=== PATIENT | male | born 1935 | race Caucasian/White ===

== ENCOUNTER 2017-08-02 14:54 | Emergency (ER) | payer MEDICARE, BC ==
[~2017-08-02] VITALS: Ht 172.7 cm; Wt 97.0 kg
[~2017-08-02 14:54] MED LIST: ASPI81TA82 PO; ATOR40TA49 PO; BUDE.25I INH; CEFU1TAB43 PO; CLON-352 PO; DILT180C56 PO; FERR65TA PO; FURO40TA PO; GLUC10TA3 PO; HYDR100T2 PO; LORA-392 PO; MONT10 PO; OMPR20CCR PO; PERF20NE INH; PRED5TAB PO; SAXA2.5T PO; VITA500015 PO; Z.0.OXYGEN INH
[2017-08-02 14:59] VITALS: BP 182/85; PULSE 100; RESP 16; TEMP 98.5; O2SAT 98
[2017-08-02 15:10] VITALS: O2SAT 97
[2017-08-02] MEDS ORDERED: methylPREDNISolone SOD SUCC 125 MG/2 ML VIAL IV PUSH ONE (15:15)
[2017-08-02] MEDS ORDERED: SODIUM CHLORIDE 0.9% FLUSH 10 ML FLUSH IVF PRN (15:15)
[2017-08-02] MEDS ORDERED: GLIP10TA6 PO (15:23)
[2017-08-02] MEDS ORDERED: CLON2TAB PO (15:23)
[2017-08-02] MEDS ORDERED: HYDR-3801 PO (15:23)
[2017-08-02] MEDS ORDERED: SODI650T PO (15:23)
[2017-08-02] MEDS ORDERED: ALLE4TAB7 PO (15:23)
[2017-08-02] MEDS ORDERED: OMEGCAP PO (15:23)
[2017-08-02] MEDS ORDERED: CLON0.1T PO (15:23)
[2017-08-02] MEDS ORDERED: BENZ1CAP54 PO (15:23)
[2017-08-02] MEDS ORDERED: GLUC100013 PO (15:23)
[2017-08-02] MEDS ORDERED: MONT10TA4 PO (15:23)
[2017-08-02] MEDS ORDERED: DILT0.05 PO (15:23)
[2017-08-02] MEDS ORDERED: ONGL5TAB PO (15:23)
[2017-08-02] MEDS ORDERED: CLON.5 PO ×3 (15:23→15:29)
[2017-08-02] MEDS ORDERED: ATOR40TA16 PO (15:23)
[2017-08-02] MEDS ORDERED: PRED10 PO (15:23)
[2017-08-02] MEDS ORDERED: FURO40TA PO (15:23)
[2017-08-02] MEDS ORDERED: ASPI-516 CHEW (15:23)
[2017-08-02] MEDS ORDERED: LORA-392 PO (15:23)
[2017-08-02] MEDS ORDERED: FERR200T PO (15:23)
[2017-08-02] MEDS ORDERED: OMEP20TA93 PO (15:23)
[2017-08-02] MEDS ORDERED: BUDE.5I NEB (15:23)
--- NOTE | 2017-08-02 15:27 | RADRPT ---
EXAM DATE/TIME: 08/02/2017 15:13 [place] COMPARISON: CHEST SINGLE AP, January 24, 2015, 13:36. INDICATIONS : Shortness of breath. MEDICAL HISTORY : Emphysema. Diabetes mellitus type II. Chronic obstructive pulmonary disease. Asthma. SURGICAL HISTORY : None. ENCOUNTER: Initial ACUITY: 1 day PAIN SCORE: 0/10 LOCATION: Bilateral chest FINDINGS: Mild stable interstitial prominence without new focal pleural or parenchymal opacities. Cardiac silho uette is borderline enlarged. Remainder of exam is unchanged. CONCLUSION: 1. No acute abnormality or significant interval change. Constantino Mckeon MD on August 02, 2017 at 15:25 Board Certified Radiologist. This report was verified electronically.
[2017-08-02] MEDS ORDERED: CHOL5000 PO (15:29)
[2017-08-02] MEDS ORDERED: BETH25TA2 PO (15:29)
[2017-08-02] MEDS ORDERED: BUDE.25I NEB (15:29)
[2017-08-02] MEDS ORDERED: PERFORMIST INH (15:29)
[2017-08-02] MEDS ORDERED: CART120C PO (15:29)
[2017-08-02] MEDS ORDERED: LEVEMIR SQ (15:29)
[2017-08-02] MEDS ORDERED: VITA-142 PO (15:29)
[2017-08-02] MEDS: RESP: ALBUTEROL 2.5 MG/IPRATROPIUM 0.5 MG NEB (SCH) INH ×2 (15:40→15:41)
[2017-08-02 15:42] VITALS: O2SAT 98
[2017-08-02 15:57] LABS: AUTOMATED NEUTROPHIL # 3.6 TH/MM3 (1.8-7.7); BASOPHIL # 0.1 TH/MM3 (0-0.2); BASOPHIL % 1.3 % (0.0-2.0); EOSINOPHIL # 0.2 TH/MM3 (0-0.4); EOSINOPHIL % 3.3 % (0.0-4.0); HEMATOCRIT 30.8 % (39.0-51.0); HEMO FLAGS DIFF FINAL; LYMPHOCYTE # 0.8 TH/MM3 (1.0-4.8); MEAN CELL VOLUME 94.3 FL (80.0-100.0); MEAN CORPUSCULAR HEMOGLOBIN 31.3 PG (27.0-34.0); MEAN CORPUSCULAR HGB CONC 33.1 % (32.0-36.0); MONO % 10.3 % (0.0-8.0); NEUT % 69.1 % (16.0-70.0); PLATELET COUNT 202 TH/MM3 (150-450); RED BLOOD COUNT 3.26 MIL/MM3 (4.50-5.90); RED CELL DISTRIBUTION WIDTH 16.2 % (11.6-17.2); WHITE BLOOD COUNT 5.2 TH/MM3 (4.0-11.0)
[2017-08-02 16:05] LABS: APTT (PATIENT) 24.8 SEC (24.3-30.1); PROTHROMBIN TIME - PATIENT 10.7 SEC (9.8-11.6)
[2017-08-02 16:10] LABS: ALT (GPT) 22 U/L (12-78); ANION GAP 8 MEQ/L (5-15); AST (GOT) 25 U/L (15-37); BICARBONATE 25.7 MEQ/L (21.0-32.0); BLOOD UREA NITROGEN 32 MG/DL (7-18); CHLORIDE 109 MEQ/L (98-107); GLOMERULAR FILTRATION RATE 16 ML/MIN (>89); MAGNESIUM 1.7 MG/DL (1.5-2.5); SODIUM (NA) 143 MEQ/L (136-145)
[2017-08-02 16:12] LABS: POTASSIUM 4.7 MEQ/L (3.5-5.1)
[2017-08-02 16:18] LABS: ALKALINE PHOSPHATASE 85 U/L (45-117); CREATINE KINASE 195 U/L (39-308); TOTAL BILIRUBIN ADULT 0.4 MG/DL (0.2-1.0)
[2017-08-02 17:23] VITALS: BP 157/75; PULSE 99; RESP 16; O2SAT 97
--- NOTE | 2017-08-02 18:07 | PD ---
HPI Chief Complaint: Respiratory Symptoms Time Seen by Provider: 15:01 Travel History International Travel<30 days: No Contact w/Intl Traveler<30days: No Traveled to known affect area: No History of Present Illness HPI 81 y/o male presents with shortness of breath when he walks. He states he went to Dr. Rice today and his heart rate was elevated there so he wanted him to come here to get checked out. He states he has history of atrial fibrillation and takes Cardizem. He states that he's dependent on oxygen for his COPD. He states his symptoms have been over the past couple of weeks. He states that they have been progressive in nature. He denies other modifying factors other than movement. He denies any other concurrent complaints including pain, fever. He states he would not be here if his physician did not advised him to come in. PFSH Past Medical History Anemia: Yes Arthritis: Yes Asthma: Yes Autoimmune Disease: No Blood Disorders: No Anxiety: No Depression: No Heart Rhythm Problems: No Cancer: No Cardiovascular Problems: Yes High Cholesterol: No Chemotherapy: No Chest Pain: No Congestive Heart Failure: No COPD: Yes Cerebrovascular Accident: No Diabetes: Yes (TYPE II) Patient Takes Glucophage: No Diminished Hearing: No Endocrine: Yes Gastrointestinal Disorders: Yes (ACID REFLUX) GERD: Yes Glaucoma: No Genitourinary: Yes (ENLARGED PROSTATE) Headaches: No Hepatitis: No Hiatal Hernia: No Hypertension: No Immune Disorder: No Implanted Vascular Access Dvce: No Kidney Stones: No Medical other: Yes (BRONCHITIS, O2 DEPENDENT 2L) Musculoskeletal: Yes (HX OF NECK FUSION 2004, ARTHRITIS) Neurologic: No Psychiatric: Yes (CLAUSTROPHOBIC) Reproductive: Yes (ENLARGED PROSTATE) Respiratory: Yes Immunizations Current: Yes Migraines: No Myocardial Infarction: No Radiation Therapy: No Renal Failure: Yes Seizures: No Sleep Apnea: Yes Thyroid Disease: No Ulcer: No Tetanus Vaccination: Unknown Past Surgical History Abdominal Surgery: Yes (UMBIICAL HERNIA, APPENDECTOMY) AICD: No Appendectomy: Yes Arteriovenous Shunt: No Body Medical Devices: CERVICAL FUSION Cardiac Surgery: No Ear Surgery: No Endocrine Surgery: No Eye Surgery: Yes (BILATERAL CATARACT SURGERY 2012) Genitourinary Surgery: Yes (TURP 2009) Gynecologic Surgery: No Insulin Pump: No Joint Replacement: No Neurologic Surgery: No Oral Surgery: No Pacemaker: No Thoracic Surgery: No Other Surgery: Yes Social History Alcohol Use: No Tobacco Use: No Substance Use: No Allergies-Medications (Allergen,Severity, Reaction): Coded Allergies: No Known Allergies (Verified Adverse Reaction, Unknown, 08/02/17) Reported Meds & Prescriptions Reported Meds & Active Scripts Active Prednisone 50 Mg Tab 50 Mg PO DAILY 5 Days Reported [Performist] 20 Mcg INH BID Pulmicort Respules (Budesonide) 0.25 Mg/2 Ml Neb 0.25 Mg NEB Q12HR NEB Levemir Inj (Insulin Detemir) 1,000 unit/ 10 ML Vial 12 Units SQ HS Do not mix with any other Insulin. Bethanechol 25 Mg Tab 12.5 Mg PO DIRECTED Cartia Xt (Diltiazem ER 24 HR) 120 Mg Caper 180 Mg PO DAILY Vitamin D3 (Cholecalciferol) 5,000 Unit Cap 5,000 Units PO DAILY Vitamin E (Vitamin E Acetate) 400 Unit Capsule 1 Tab PO DAILY Klonopin (Clonazepam) 0.5 Mg Tab 0.5 Mg PO TUE,TUE,TUE Klonopin (Clonazepam) 0.5 Mg Tab 0.5 Mg PO DIRECTED Sodium Bicarbonate 650 Mg Tab 650 Mg PO TIDPC Prednisone 10 Mg Tab 10 Mg PO DIRECTED Onglyza (Saxagliptin) 5 Mg Tab 2.5 Mg PO DAILY Omeprazole 20 Mg Tab 20 Mg PO DAILY Montelukast (Montelukast Sodium) 10 Mg Tab 10 Mg PO DAILY Klonopin (Clonazepam) 0.5 Mg Tab 0.5 Mg PO HS Hydralazine (Hydralazine HCl) 100 Mg Tab 100 Mg PO TID Take with meals Glucosamine (Glucosamine Sulfate) 1,000 Mg Cap 1,000 Mg PO DAILY Glipizide 10 Mg Tab 10 Mg PO BIDAC Take 30 minutes before a meal Furosemide 40 Mg Tab 40 Mg PO DAILY [place]-3 Fish Oil/Vitamin (Fish Oil-Cholecalciferol) 1,000-1,000 Mg Cap 1 Cap PO DAILY Feosol (Ferrous Sulfate) 325 Mg (65 Mg Iron) Tab 134 Mg PO DAILY Diltiazem ER 24 HR 180 Mg Sammy 180 Mg PO DAILY Clonidine (Clonidine HCl) 0.1 Mg Tab 0.1 Mg PO Q6HR Clonazepam 2 Mg Tab 2 Mg PO HS Allergy (Chlorpheniramine Maleate) 4 Mg Tab 4 Mg PO HS Pulmicort Respules (Budesonide) 0.5 Mg/2 Ml Neb 0.5 Mg NEB DAILY NEB Benzonatate 100 Mg Cap 200 Mg PO TID PRN Atorvastatin (Atorvastatin Calcium) 40 Mg Tab 40 Mg PO HS Ativan (Lorazepam) 0.5 Mg Tab 0.5 Mg PO Q6HR PRN Aspirin 81 Mg Chew 81 Mg CHEW ONCE Review of Systems Except as stated in HPI: all other systems reviewed are Neg Physical Exam Exam Limitations: Poor Historian Narrative GENERAL: Well-nourished, well-developed patient. SKIN: Warm and dry. HEAD: Normocephalic and atraumatic. EYES: No injection or drainage. ENT: No nasal drainage noted. NECK: Supple, trachea midline. CARDIOVASCULAR: Regular rate and rhythm RESPIRATORY: Decreased breath sounds bilaterally. No accessory muscle use. GASTROINTESTINAL: Abdomen soft, non-tender, nondistended. NEUROLOGICAL: Awake and alert. Moves all extremities and sensory grossly within normal limits. Normal speech. Data Data Last Documented VS Vital Signs Date Time Temp Pulse Resp B/P (MAP) Pulse Ox O2 Delivery O2 Flow Rate FiO2 08/02/17 19:33 08/02/17 17:23 99 16 97 Room Air 08/02/17 15:42 3.00 08/02/17 14:59 98.5 Orders Orders Complete Blood Count With Diff (08/02/17 15:07) Comprehensive Metabolic Panel (08/02/17 15:07) B-Type Natriuretic Peptide (08/02/17 15:07) Act Partial Throm Time (Ptt) (08/02/17 15:07) Prothrombin Time / Inr (Pt) (08/02/17 15:07) Magnesium (Mg) (08/02/17 15:07) Ckmb (Isoenzyme) Profile (08/02/17 15:07) Troponin I (08/02/17 15:07) Influenzae A/B Antigen (08/02/17 15:07) Iv Access Insert/Monitor (08/02/17 15:07) Electrocardiogram (08/02/17 15:07) Ecg Monitoring (08/02/17 15:07) Oximetry (08/02/17 15:07) Oxygen Administration (08/02/17 15:07) Chest, Single Ap (08/02/17 15:07) Sodium Chloride 0.9% Flush (Ns Flush) (08/02/17 15:15) Methylprednisolone So Succ Inj (Solumedr (08/02/17 15:15) Albuterol-Ipratropium Neb (Duoneb Neb) (08/02/17 15:15) CKMB (08/02/17 15:30) CKMB% (08/02/17 15:30) Ckmb (Isoenzyme) Profile (08/02/17 18:30) Troponin I (08/02/17 18:30) CKMB (08/02/17 18:00) CKMB% (08/02/17 18:00) Ed Discharge Order (08/02/17 18:57) Labs Laboratory Tests Test 08/02/17 15:30 08/02/17 18:00 08/03/17 18:46 White Blood Count 5.2 TH/MM3 Red Blood Count 3.26 MIL/MM3 Hemoglobin 10.2 GM/DL Hematocrit 30.8 % Mean Corpuscular Volume 94.3 FL Mean Corpuscular Hemoglobin 31.3 PG Mean Corpuscular Hemoglobin Concent 33.1 % Red Cell Distribution Width 16.2 % Platelet Count 202 TH/MM3 Mean Platelet Volume 7.8 FL Neutrophils (%) (Auto) 69.1 % Lymphocytes (%) (Auto) 16.0 % Monocytes (%) (Auto) 10.3 % Eosinophils (%) (Auto) 3.3 % Basophils (%) (Auto) 1.3 % Neutrophils # (Auto) 3.6 TH/MM3 Lymphocytes # (Auto) 0.8 TH/MM3 Monocytes # (Auto) 0.5 TH/MM3 Eosinophils # (Auto) 0.2 TH/MM3 Basophils # (Auto) 0.1 TH/MM3 CBC Comment DIFF FINAL Differential Comment Prothrombin Time 10.7 SEC Prothromb Time International Ratio 1.0 RATIO Activated Partial Thromboplast Time 24.8 SEC Blood Urea Nitrogen 32 MG/DL Creatinine 3.62 MG/DL Random Glucose 104 MG/DL Total Protein 7.1 GM/DL Albumin 3.5 GM/DL Calcium Level 8.1 MG/DL Magnesium Level 1.7 MG/DL Alkaline Phosphatase 85 U/L Aspartate Amino Transf (AST/SGOT) 25 U/L Alanine Aminotransferase (ALT/SGPT) 22 U/L Total Bilirubin 0.4 MG/DL Sodium Level 143 MEQ/L Potassium Level 4.7 MEQ/L Chloride Level 109 MEQ/L Carbon Dioxide Level 25.7 MEQ/L Anion Gap 8 MEQ/L Estimat Glomerular Filtration Rate 16 ML/MIN Total Creatine Kinase 195 U/L 163 U/L Creatine Kinase MB 4.0 NG/ML 3.7 NG/ML Troponin I 0.03 NG/ML 0.04 NG/ML B-Type Natriuretic Peptide 209 PG/ML Lab Scanned Report Lab Reports - Other [id number] [facility] Medical Decision Making Medical Screen Exam Complete: Yes Emergency Medical Condition: Yes Medical Record Reviewed: Yes (past history confirmed) Interpretation(s) CBC & BMP Diagram 08/02/17 15:30 Total Protein 7.1, Albumin 3.5, Calcium Level 8.1 L, Magnesium Level 1.7, Alkaline Phosphatase 85, Aspartate Amino Transf (AST/SGOT) 25, Alanine Aminotransferase (ALT/SGPT) 22, Total Bilirubin 0.4 Last 24 hours Impressions Chest X-Ray 08/02/17 1507 Signed Impressions: Service Date/Time: Wednesday, August 02, 2017 15:13 - CONCLUSION: 1. No acute abnormality or significant interval change. Constantino Mckeon MD EKG shows NSR, no ST elevation or depression, and no arrhythmias. No significant T-wave inversions. Differential Diagnosis Anemia, cardiac, COPD, pneumothorax, pneumonia Narrative Course Will check blood work, chest x-ray, influenza and dose with DuoNeb's and Solu- Medrol and reevaluate. Heart rate controlled here On recheck patient has improved aeration and faint wheezing bilaterally. Oxygen is stable. Heart rate is still stable. Patient has very mild elevation of CK-MB but denies any pain and is wanting to go. I recommended at a minimum that this needs to be repeated in for him to be reevaluated and he states he will wait a couple hours for that but then he wants to go. repeat ckmg stable, patient offered observation again and not wanting to stay, Patient denies any new complaints and states that they are feeling better. Patient happy with care, all questions answered. Patient knows that follow up is incumbent on them and to return to the emergency room immediately if new or worsening symptoms develop. Patient given strict return precautions, vitals reviewed and are normal, agrees to further workup as an outpatient. Diagnosis Primary Impression: COPD exacerbation Patient Instructions: General Instructions Additional Instructions: return as needed, follow with primary tommorrow, nebulizer treatment every 4 hours as needed for shortness of breath Med/Other Pt SpecificInfo: Prescription(s) given Scripts Prednisone (Prednisone) 50 Mg Tab 50 MG PO DAILY for 5 Days, #5 TAB 0 Refills Prov: Nina Ortez MD 08/02/17 Disposition: 01 DISCHARGE HOME Condition: Stable Nina Otrez MD Aug 02, 2017 18:07
[2017-08-02 18:38] LABS: CREATINE KINASE 163 U/L (39-308)
[2017-08-02] MEDS ORDERED: PRED50 PO (18:44)
[2017-08-02 18:51] LABS: CKMB 3.7 NG/ML (0.5-3.6)
--- NOTE | 2017-08-03 09:55 | EKG ---
Date Performed: 08/02/2017 Time Performed: 15:24:49 PTAGE: 81 years EKG: Sinus rhythm WITH OCCASIONAL SUPRAVENTRICULAR PREMATURE COMPLEXES BORDERLINE ECG PREVIOUS TRACING : 01/24/2015 13.32 DOCTOR: Julian Franco Interpretating Date/Time 08/03/2017 09:54:53
[2017-08-05] MEDS ORDERED: FORM20NE NEB (17:42)
== END 2017-08-02 19:33 | disposition home or self-care (01) ==
LOC: NEPE 14:54
DX: J44.1 Chronic obstructive pulmonary disease with (acute) exacerbation (principal); I48.91 Unspecified atrial fibrillation; D64.9 Anemia, unspecified; M19.90 Unspecified osteoarthritis, unspecified site; J45.909 Unspecified asthma, uncomplicated; E11.9 Type 2 diabetes mellitus without complications; K21.9 Gastro-esophageal reflux disease without esophagitis; N40.0 Benign prostatic hyperplasia without lower urinary tract symptoms; Z99.81 Dependence on supplemental oxygen
CPT/HCPCS: 71010; 80053; 82550; 82552; 83735; 83880; 84484; 85025; 85610; 85730; 87804; 93005; 94640; 94664; 96374; 99285; J2930

== ENCOUNTER 2017-10-09 20:44 | Inpatient (IN) | payer MEDICARE, BC ==
[~2017-10-09] VITALS: Ht 165.1 cm; Wt 89.4 kg
[~2017-10-09 20:44] MED LIST changes: +ALLE4TAB7 PO; +ASPI-516 CHEW; -ASPI81TA82 PO; +ATOR40TA16 PO; -ATOR40TA49 PO; +BENZ1CAP54 PO; +BETH25TA2 PO; -BUDE.25I INH; +BUDE.25I NEB; +BUDE.5I NEB; +CART120C PO; -CEFU1TAB43 PO; +CHOL5000 PO; -CLON-352 PO; +CLON.5 PO; +CLON0.1T PO; +CLON2TAB PO; +DILT0.05 PO; -DILT180C56 PO; +FERR200T PO; -FERR65TA PO; +FORM20NE NEB; +GLIP10TA6 PO; +GLUC100013 PO; -GLUC10TA3 PO; +HYDR-3801 PO; -HYDR100T2 PO; +LEVEMIR SQ; -MONT10 PO; +MONT10TA4 PO; +OMEGCAP PO; +OMEP20TA93 PO; -OMPR20CCR PO; +ONGL5TAB PO; -PERF20NE INH; +PRED10 PO; +PRED50 PO; -PRED5TAB PO; -SAXA2.5T PO; +SODI650T PO; +VITA-142 PO; -VITA500015 PO; -Z.0.OXYGEN INH
[2017-10-09 20:48] VITALS: BP 159/70; PULSE 110; RESP 32; O2SAT 80
[2017-10-09] MEDS ORDERED: NITROGLYCERIN 0.4 MG SL 25 TABS/BTL SL ONE (20:48)
[2017-10-09 20:55] VITALS: O2SAT 100
[2017-10-09] MEDS ORDERED: SODIUM CHLORIDE 0.9% FLUSH 10 ML FLUSH IVF PRN (21:00)
[2017-10-09] MEDS ORDERED: FUROSEMIDE 40 MG/4 ML VIAL IVP ONE (21:00)
--- NOTE | 2017-10-09 21:00 | PD ---
HPI Chief Complaint: Respiratory Distress Time Seen by Provider: 20:52 Travel History International Travel<30 days: No Contact w/Intl Traveler<30days: No Traveled to known affect area: No History of Present Illness HPI 82-year-old male patient with history of end-stage renal disease currently on dialysis, last had dialysis on Tuesday, presents to the ER today brought in by EMS for worsening shortness of breath, dyspnea on exertion, and apparently was satting in the 60s when they initially saw the patient. Patient was placed on BiPAP by EMS, and he is having saturations in the 80s and is feeling better. He denies any chest pains, fevers, or any other issues. Modifying Factors: None Associated Signs & Symptoms: Shortness of breath, dyspnea on exertion, hypoxia Risk Factors: End-stage renal disease on dialysis PFSH Past Medical History Anemia: Yes Arthritis: Yes Asthma: Yes Autoimmune Disease: No Blood Disorders: No Anxiety: No Depression: No Heart Rhythm Problems: No Cancer: No Cardiovascular Problems: Yes High Cholesterol: No Chemotherapy: No Chest Pain: No Congestive Heart Failure: No COPD: Yes Cerebrovascular Accident: No Diabetes: Yes (TYPE II) Patient Takes Glucophage: Yes Diminished Hearing: No Endocrine: Yes Gastrointestinal Disorders: Yes (ACID REFLUX) GERD: Yes Glaucoma: No Genitourinary: Yes (ENLARGED PROSTATE) Headaches: No Hepatitis: No Hiatal Hernia: No Hypertension: No Immune Disorder: No Implanted Vascular Access Dvce: No Kidney Stones: No Medical other: Yes (ANEMIA OF UNKNOWN ORIGIN) Musculoskeletal: Yes (HX OF NECK FUSION 2004, ARTHRITIS) Neurologic: No Psychiatric: Yes (CLAUSTROPHOBIC) Reproductive: Yes (ENLARGED PROSTATE) Respiratory: Yes Immunizations Current: Yes Migraines: No Myocardial Infarction: No Radiation Therapy: No Renal Failure: Yes Seizures: No Sleep Apnea: Yes Thyroid Disease: No Ulcer: No Influenza Vaccination: Yes Past Surgical History Abdominal Surgery: Yes (UMBIICAL HERNIA, APPENDECTOMY) AICD: No Appendectomy: Yes Arteriovenous Shunt: No Body Medical Devices: CERVICAL FUSION Cardiac Surgery: No Ear Surgery: No Endocrine Surgery: No Eye Surgery: Yes (BILATERAL CATARACT SURGERY 2012) Genitourinary Surgery: Yes (TURP 2009) Gynecologic Surgery: No Insulin Pump: No Joint Replacement: No Neurologic Surgery: No Oral Surgery: No Pacemaker: No Thoracic Surgery: No Other Surgery: Yes Social History Alcohol Use: No Tobacco Use: No Substance Use: No Allergies-Medications (Allergen,Severity, Reaction): Coded Allergies: No Known Allergies (Verified Allergy, Unknown, 10/09/17) Reported Meds & Prescriptions Reported Meds & Active Scripts Active Prednisone 50 Mg Tab 50 Mg PO DAILY 5 Days Reported Perforomist Neb (Formoterol Fumarate) 20 Mcg/2 Ml Neb 20 Mcg NEB BID Pulmicort Respules (Budesonide) 0.25 Mg/2 Ml Neb 0.25 Mg NEB Q12HR NEB Levemir Inj (Insulin Detemir) 1,000 unit/ 10 ML Vial 12 Units SQ HS Do not mix with any other Insulin. Bethanechol 25 Mg Tab 12.5 Mg PO DIRECTED Cartia Xt (Diltiazem ER 24 HR) 120 Mg Caper 180 Mg PO DAILY Vitamin D3 (Cholecalciferol) 5,000 Unit Cap 5,000 Units PO DAILY Vitamin E (Vitamin E Acetate) 400 Unit Capsule 1 Tab PO DAILY Klonopin (Clonazepam) 0.5 Mg Tab 0.5 Mg PO MON,WED,TUE Sodium Bicarbonate 650 Mg Tab 650 Mg PO TIDPC Prednisone 10 Mg Tab 10 Mg PO DIRECTED Onglyza (Saxagliptin) 5 Mg Tab 2.5 Mg PO DAILY Omeprazole 20 Mg Tab 20 Mg PO DAILY Montelukast (Montelukast Sodium) 10 Mg Tab 10 Mg PO DAILY Klonopin (Clonazepam) 0.5 Mg Tab 0.5 Mg PO HS Hydralazine (Hydralazine HCl) 100 Mg Tab 100 Mg PO TID Take with meals Glucosamine (Glucosamine Sulfate) 1,000 Mg Cap 1,000 Mg PO DAILY Glipizide 10 Mg Tab 10 Mg PO BIDAC Take 30 minutes before a meal Furosemide 40 Mg Tab 40 Mg PO DAILY [place]-3 Fish Oil/Vitamin (Fish Oil-Cholecalciferol) 1,000-1,000 Mg Cap 1 Cap PO DAILY Feosol (Ferrous Sulfate) 325 Mg (65 Mg Iron) Tab 134 Mg PO DAILY Diltiazem ER 24 HR 180 Mg Sammy 180 Mg PO DAILY Clonidine (Clonidine HCl) 0.1 Mg Tab 0.1 Mg PO Q6HR Clonazepam 2 Mg Tab 2 Mg PO HS Allergy (Chlorpheniramine Maleate) 4 Mg Tab 4 Mg PO HS Pulmicort Respules (Budesonide) 0.5 Mg/2 Ml Neb 0.5 Mg NEB DAILY NEB Benzonatate 100 Mg Cap 200 Mg PO TID PRN Atorvastatin (Atorvastatin Calcium) 40 Mg Tab 40 Mg PO HS Ativan (Lorazepam) 0.5 Mg Tab 0.5 Mg PO Q6HR PRN Aspirin 81 Mg Chew 81 Mg CHEW ONCE Review of Systems Except as stated in HPI: all other systems reviewed are Neg Physical Exam Narrative GENERAL: Well-developed elderly white male patient currently in moderate respiratory distress. Awake, alert. SKIN: Focused skin assessment warm/dry. HEAD: Atraumatic. Normocephalic. EYES: Pupils equal and round. No scleral icterus. No injection or drainage. ENT: No nasal bleeding or discharge. Mucous membranes pink and moist. NECK: Trachea midline. No JVD. Supple. CARDIOVASCULAR: Regular rate and rhythm. No murmur appreciated. RESPIRATORY: Moderate accessory muscle use. Crackles at the bases and decreased throughout. Breath sounds equal bilaterally. GASTROINTESTINAL: Abdomen soft, non-tender, nondistended. Hepatic and splenic margins not palpable. MUSCULOSKELETAL: No obvious deformities. No clubbing. No cyanosis. No edema. NEUROLOGICAL: Awake and alert. No obvious cranial nerve deficits. Motor grossly within normal limits. One word sentences. PSYCHIATRIC: Appropriate mood and affect; insight and judgment normal. Data Data Last Documented VS Vital Signs Date Time Temp Pulse Resp B/P (MAP) Pulse Ox O2 Delivery O2 Flow Rate FiO2 10/09/17 22:34 100 60 10/09/17 21:15 92 16 120/58 (78) BiPAP Orders Orders Nitroglycerin Sl (Nitrostat Sl) (10/09/17 20:48) Complete Blood Count With Diff (10/09/17 20:52) Comprehensive Metabolic Panel (10/09/17 20:52) B-Type Natriuretic Peptide (10/09/17 20:52) Ckmb (Isoenzyme) Profile (10/09/17 20:52) Troponin I (10/09/17 20:52) Arterial Blood Gas (Abg) (10/09/17 20:52) Blood Culture (10/09/17 20:52) Iv Access Insert/Monitor (10/09/17 20:52) Electrocardiogram (10/09/17 20:52) Ecg Monitoring (10/09/17 20:52) Oximetry (10/09/17 20:52) Oxygen Administration (10/09/17 20:52) Chest, Single Ap (10/09/17 20:52) Urinary Catheter Insert/Apply (10/09/17 20:52) Sodium Chloride 0.9% Flush (Ns Flush) (10/09/17 21:00) Furosemide Inj (Lasix Inj) (10/09/17 21:00) Resp Bipap / Cpap Non Invas Vt (10/09/17 20:52) Nitroglycerin Sl (Nitrostat Sl) (10/09/17 21:15) CKMB (10/09/17 21:05) CKMB% (10/09/17 21:05) Blood Flow Rate (10/09/17 22:32) Dialysate Flow Rate (10/09/17 22:32) Dialyzer (10/09/17 22:32) Concentrate (10/09/17 22:32) Acid Concentrate (10/09/17 22:32) Length Of Dialysis (10/09/17 22:32) Frequency Of Dialysis (10/09/17 22:32) Dialysis Obtain (10/09/17 22:32) Hepatitis Profile (10/09/17 22:32) Needle Size (10/09/17 22:32) Dialysis Schedule (10/09/17 22:32) Dialysis Weight (10/09/17 22:32) ^ Obtain As Needed (10/09/17 22:32) Sodium Chlor 0.9% 1000 Ml Inj (Ns 1000 M (10/09/17 22:32) Heparin Inj (Heparin Inj) (10/09/17 22:45) Heparin Inj (Heparin Inj) (10/09/17 22:45) Sodium Chlor 0.9% 1000 Ml Inj (Ns 1000 M (10/09/17 22:32) Sodium Chlor 0.9% 1000 Ml Inj (Ns 1000 M (10/09/17 22:32) Mannitol Inj (Mannitol Inj) (10/09/17 22:45) Albumin 25% Inj (Albumin 25% Inj) (10/09/17 22:45) Sodium Chloride 0.9% Flush (Ns Flush) (10/09/17 22:45) Ondansetron Inj (Zofran Inj) (10/09/17 22:45) Acetaminophen (Tylenol) (10/09/17 22:45) Diphenhydramine (Benadryl) (10/09/17 22:45) Nitroglycerin Sl (Nitrostat Sl) (10/09/17 22:45) Clonidine (Catapres) (10/09/17 22:45) Gelatin 12 Mm/7 Mm Top (Gelfoam 12 Mm/7 (10/09/17 22:45) Admit Order (Ed Use Only) (10/09/17 22:39) Labs Laboratory Tests Test 10/09/17 20:59 10/09/17 21:05 Blood Gas Puncture Site RT RADIAL Blood Gas Patient Temperature 98.6 Blood Gas HCO3 21 mmol/L Blood Gas Base Excess -5.1 mmol/L Blood Gas Oxygen Saturation 97 % Arterial Blood pH 7.23 Arterial Blood Partial Pressure CO2 53 mmHg Arterial Blood Partial Pressure O2 154 mmHG Arterial Blood Oxygen Content 12.6 Vol % Arterial Blood Carboxyhemoglobin 1.1 % Arterial Blood Methemoglobin 0.9 % Blood Gas Hemoglobin 9.0 G/DL Oxygen Delivery Device BIPAP Blood Gas Ventilator Setting [id number] Blood Gas Inspired Oxygen 60 % White Blood Count 9.1 TH/MM3 Red Blood Count 3.11 MIL/MM3 Hemoglobin 9.6 GM/DL Hematocrit 29.9 % Mean Corpuscular Volume 96.2 FL Mean Corpuscular Hemoglobin 30.9 PG Mean Corpuscular Hemoglobin Concent 32.2 % Red Cell Distribution Width 17.1 % Platelet Count 290 TH/MM3 Mean Platelet Volume 7.9 FL Neutrophils (%) (Auto) 67.5 % Lymphocytes (%) (Auto) 21.5 % Monocytes (%) (Auto) 7.8 % Eosinophils (%) (Auto) 2.1 % Basophils (%) (Auto) 1.1 % Neutrophils # (Auto) 6.1 TH/MM3 Lymphocytes # (Auto) 2.0 TH/MM3 Monocytes # (Auto) 0.7 TH/MM3 Eosinophils # (Auto) 0.2 TH/MM3 Basophils # (Auto) 0.1 TH/MM3 CBC Comment DIFF FINAL Differential Comment Blood Urea Nitrogen 45 MG/DL Creatinine 4.54 MG/DL Random Glucose 291 MG/DL Total Protein 7.3 GM/DL Albumin 3.6 GM/DL Calcium Level 8.4 MG/DL Alkaline Phosphatase 95 U/L Aspartate Amino Transf (AST/SGOT) 27 U/L Alanine Aminotransferase (ALT/SGPT) 23 U/L Total Bilirubin 0.4 MG/DL Sodium Level 142 MEQ/L Potassium Level 4.5 MEQ/L Chloride Level 108 MEQ/L Carbon Dioxide Level 24.4 MEQ/L Anion Gap 10 MEQ/L Estimat Glomerular Filtration Rate 13 ML/MIN Total Creatine Kinase 159 U/L Creatine Kinase MB 4.4 NG/ML Troponin I 0.42 NG/ML B-Type Natriuretic Peptide 388 PG/ML MDM Medical Decision Making Medical Screen Exam Complete: Yes Emergency Medical Condition: Yes Medical Record Reviewed: Yes Interpretation(s) EKG shows sinus tachycardia at a rate of 108 bpm. I do not see any signs of acute ST-T changes. There is significant motion artifact. Laboratory Tests Test 10/09/17 20:59 10/09/17 21:05 Blood Gas HCO3 21 mmol/L (22-26) Blood Gas Base Excess -5.1 mmol/L (-2-2) Arterial Blood pH 7.23 (7.380-7.420) Arterial Blood Partial Pressure CO2 53 mmHg (38-42) Arterial Blood Partial Pressure O2 154 mmHG (61-120) Blood Gas Hemoglobin 9.0 G/DL (12.0-16.0) Red Blood Count 3.11 MIL/MM3 (4.50-5.90) Hemoglobin 9.6 GM/DL (13.0-17.0) Hematocrit 29.9 % (39.0-51.0) Blood Urea Nitrogen 45 MG/DL (7-18) Creatinine 4.54 MG/DL (0.60-1.30) Random Glucose 291 MG/DL (74-106) Calcium Level 8.4 MG/DL (8.5-10.1) Chloride Level 108 MEQ/L (98-107) Estimat Glomerular Filtration Rate 13 ML/MIN (>89) Creatine Kinase MB 4.4 NG/ML (0.5-3.6) Troponin I 0.42 NG/ML (0.02-0.05) B-Type Natriuretic Peptide 388 PG/ML (0-100) Last 24 hours Impressions Chest X-Ray 10/09/172051 Signed Impressions: Service Date/Time: Monday, October 09, 2017 21:35 - CONCLUSION: Mild bibasilar consolidation 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 Riley Decker MD Differential Diagnosis Short of breath, dyspnea on exertion: Fluid overload versus CHF versus COPD versus pneumonia Narrative Course Patient was given nitroglycerin in the ER and put on BiPAP with improvement in oxygenation and respiration efforts. Chest x-ray shows pulmonary edema. Case was discussed with Dr. Luna who agrees to take the patient for dialysis to remove fluid. Otherwise, troponin is elevated, likely secondary to the rest her distress and pulmonary edema. This will need to be watched as well. I do not see any signs of acute ST-T elevations or depressions on EKG other EKG is somewhat limited by motion artifact due to respiratory distress. At this point , case is discussed with Dr. Gregory for admission to ICU. Aggregate critical care time was 30 minutes. Time to perform other separately billable procedures was not included in the critical care time. My time did not include minutes spent treating any other patients simultaneously or on activities that did not directly contribute to the patient's treatment. The services I provided to this patient were to treat and/or prevent clinically significant deterioration that could result in: Worsening respiratory distress, respiratory failure, I provided critical care services requiring my management, as noted below: Chart data review, documentation time, medication orders and management, vital sign assessments/reviewing monitor data, ordering and reviewing lab tests, ordering and interpreting/reviewing x-rays and diagnostic studies, care of the patient and discussion of the patient with the admitting physicians. Diagnosis Primary Impression: CHF exacerbation Additional Impressions: Hypertensive urgency Acute on chronic renal failure Elevated troponin Hypoxia Admitting Information Admitting Physician Requests: it Zi Lange MD Oct 09, 2017 21:00
[2017-10-09 21:12] VITALS: RESP 18; O2SAT 100
[2017-10-09 21:15] VITALS: BP 120/58; PULSE 92; RESP 16; O2SAT 100
[2017-10-09 21:16] LABS: AUTOMATED NEUTROPHIL # 6.1 TH/MM3 (1.8-7.7); BASOPHIL # 0.1 TH/MM3 (0-0.2); BASOPHIL % 1.1 % (0.0-2.0); EOSINOPHIL # 0.2 TH/MM3 (0-0.4); EOSINOPHIL % 2.1 % (0.0-4.0); HEMATOCRIT 29.9 % (39.0-51.0); HEMOGLOBIN 9.6 GM/DL (13.0-17.0); LYMPH % 21.5 % (9.0-44.0); MEAN CELL VOLUME 96.2 FL (80.0-100.0); MEAN CORPUSCULAR HEMOGLOBIN 30.9 PG (27.0-34.0); MEAN CORPUSCULAR HGB CONC 32.2 % (32.0-36.0); MEAN PLATELET VOLUME 7.9 FL (7.0-11.0); MONO % 7.8 % (0.0-8.0); MONOCYTE # 0.7 TH/MM3 (0-0.9); NEUT % 67.5 % (16.0-70.0); PLATELET COUNT 290 TH/MM3 (150-450); RED BLOOD COUNT 3.11 MIL/MM3 (4.50-5.90); RED CELL DISTRIBUTION WIDTH 17.1 % (11.6-17.2); WHITE BLOOD COUNT 9.1 TH/MM3 (4.0-11.0)
[2017-10-09] MEDS: NITROGLYCERIN 0.3 MG SL 100 TABS/BTL SL PRN ×2 (21:19→21:20)
[2017-10-09 21:46] LABS: ALT (GPT) 23 U/L (12-78)
[2017-10-09 21:49] LABS: ALKALINE PHOSPHATASE 95 U/L (45-117); TOTAL BILIRUBIN ADULT 0.4 MG/DL (0.2-1.0); TOTAL PROTEIN 7.3 GM/DL (6.4-8.2); TROPONIN I 0.42 NG/ML (0.02-0.05)
--- NOTE | 2017-10-09 21:49 | RADRPT ---
EXAM DATE/TIME: 10/09/2017 21:35 [place] COMPARISON: No previous studies available for comparison. INDICATIONS : Short of Breath MEDICAL HISTORY : Emphysema. Diabetes mellitus type II. Chronic obstructive pulmonary disease. Asthma. SURGICAL HISTORY : None. ENCOUNTER: Initial ACUITY: 1 day PAIN SCORE: 0/10 LOCATION: chest FINDINGS: Moderate, chronic interstitial opacities are again noted. There are superimposed mild acute infiltrat es of both bases, left slightly more so than right. No pleural effusion. No pneumothorax. CONCLUSION: Mild bibasilar consolidation 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 Riley Decker MD on October 09, 2017 at 21:46 Board Certified Radiologist. This report was verified electronically.
[2017-10-09 21:50] LABS: ALBUMIN 3.6 GM/DL (3.4-5.0); AST (GOT) 27 U/L (15-37); BICARBONATE 24.4 MEQ/L (21.0-32.0); BLOOD UREA NITROGEN 45 MG/DL (7-18); CALCIUM 8.4 MG/DL (8.5-10.1); CHLORIDE 108 MEQ/L (98-107); CREATININE 4.54 MG/DL (0.60-1.30); GLOMERULAR FILTRATION RATE 13 ML/MIN (>89); GLUCOSE,RANDOM 291 MG/DL (74-106); SODIUM (NA) 142 MEQ/L (136-145)
[2017-10-09] MEDS ORDERED: SODIUM CHLOR 0.9% 1000 ML INJ 1,000 ML OTHER PRN ×2 (22:32)
[2017-10-09] MEDS ORDERED: SODIUM CHLOR 0.9% 1000 ML INJ 1,000 ML IV PRN (22:32)
[2017-10-09 22:34] VITALS: O2SAT 100
--- NOTE | 2017-10-09 22:41 | HHI.PR ---
Subjective Remarks Dialysis nurse contacted and orders entered in the EHR. Objective Vital Signs Date Time Temp Pulse Resp B/P (MAP) Pulse Ox O2 Delivery O2 Flow Rate FiO2 10/09/17 21:15 92 16 120/58 (78) 100 BiPAP 60 10/09/17 21:12 100 BiPAP 10/09/17 21:12 18 100 BiPAP 10/09/17 20:55 100 100 10/09/17 20:48 110 32 159/70 (99) 80 Result Diagram: 10/09/17210410/09/172104 [place] MD Oct 09, 2017 22:41
[2017-10-09] MEDS ORDERED: ALBUMIN 25% INJ 100 ML IV PRN (22:45)
[2017-10-09] MEDS ORDERED: cloNIDine HCL 0.1 MG TAB PO PRN (22:45)
[2017-10-09] MEDS ORDERED: HEPARIN SODIUM - IV 10,000 UNITS/10 ML VIAL IV FLUSH PRN ×2 (22:45)
[2017-10-09] MEDS ORDERED: diphenhydrAMINE HCL 25 MG CAP PO PRN (22:45)
[2017-10-09] MEDS ORDERED: MANNITOL 12.5 GM/50 ML VIAL IV PRN (22:45)
[2017-10-09] MEDS ORDERED: SODIUM CHLORIDE 0.9% FLUSH 10 ML FLUSH IV FLUSH PRN ×2 (22:45→23:00)
[2017-10-09] MEDS ORDERED: ONDANSETRON HCL 4 MG/2 ML VIAL IV PUSH PRN ×2 (22:45→23:00)
[2017-10-09] MEDS ORDERED: GELATIN 12 MM/7 MM FOAM TOP PRN (22:45)
[2017-10-09] MEDS ORDERED: NITROGLYCERIN 0.4 MG SL 25 TABS/BTL SL PRN (22:45)
[2017-10-09] MEDS ORDERED: GLUCAGON 1 MG/ML VIAL OTHER PRN (23:00)
[2017-10-09] MEDS ORDERED: BISACODYL 10 MG SUPP RECTAL PRN (23:00)
[2017-10-09] MEDS ORDERED: RESP: ALBUTEROL 2.5 MG/3 ML NEB (PRN) INH (23:00)
[2017-10-09] MEDS ORDERED: DEXTROSE 50% IN WATER 50 ML VIAL(D50) IV PUSH PRN (23:00)
[2017-10-09] MEDS ORDERED: CHLORHEXIDINE GLUCONATE 2 % 1 PACK (2 CLOTHS) TOP PRN (23:00)
[2017-10-09] MEDS ORDERED: SENNOSIDES 8.6 MG TAB PO PRN (23:00)
[2017-10-09] MEDS: INSULIN DETEMIR 100 UNITS/ML VIAL SQ SCH (23:00)
[2017-10-09] MEDS ORDERED: LACTULOSE SYRUP 20 GM/30 ML CUP PO PRN (23:00)
[2017-10-09] MEDS ORDERED: MISCELLANEOUS NURSING INFORMATION XX SCH (23:00)
[2017-10-09] MEDS ORDERED: MAGNESIUM HYDROXIDE SUSP 30 ML CUP PO PRN (23:00)
[2017-10-10] VITALS (16 sets, daily range): BP systolic 111–166; BP diastolic 57–85; PULSE 65–93; RESP 16–39; TEMP 97.3–98.8; O2SAT 89–100
[2017-10-10] MEDS: RESP: ALBUTEROL 2.5 MG/IPRATROPIUM 0.5 MG NEB (SCH) INH ×4 (03:44→20:59)
[2017-10-10] MEDS: CHLORHEXIDINE GLUCONATE 2 % 1 PACK (2 CLOTHS) TOP SCH (04:00)
[2017-10-10 04:21] LABS: AUTOMATED NEUTROPHIL # 6.5 TH/MM3 (1.8-7.7); BASOPHIL # 0.1 TH/MM3 (0-0.2); BASOPHIL % 0.7 % (0.0-2.0); EOSINOPHIL # 0.1 TH/MM3 (0-0.4); EOSINOPHIL % 0.8 % (0.0-4.0); HEMATOCRIT 27.6 % (39.0-51.0); HEMOGLOBIN 9.1 GM/DL (13.0-17.0); LYMPHOCYTE # 0.6 TH/MM3 (1.0-4.8); MEAN CELL VOLUME 93.5 FL (80.0-100.0); MEAN CORPUSCULAR HEMOGLOBIN 30.7 PG (27.0-34.0); MEAN CORPUSCULAR HGB CONC 32.9 % (32.0-36.0); MONO % 7.9 % (0.0-8.0); MONOCYTE # 0.6 TH/MM3 (0-0.9); NEUT % 82.6 % (16.0-70.0); PLATELET COUNT 227 TH/MM3 (150-450); RED BLOOD COUNT 2.95 MIL/MM3 (4.50-5.90); RED CELL DISTRIBUTION WIDTH 16.4 % (11.6-17.2); WHITE BLOOD COUNT 7.8 TH/MM3 (4.0-11.0)
[2017-10-10] MEDS: HEPARIN SODIUM - SQ 10,000 UNITS/ML VIAL SQ SCH ×2 (06:02→11:41)
--- NOTE | 2017-10-10 07:10 | HHI.HP ---
HPI Service Critical Care Medicine Primary Care Physician Lyn Medrano M.D. Admission Diagnosis CHF/elevated troponins Diagnosis: Travel History International Travel<30 Days: No Contact w/Intl Traveler <30 Da: No Traveled to Known Affected Are: No History of Present Illness 82 yo male with PMH of ESRD on HD ~3years M/W/F, COPD on 3 L home O2, type II DM, hypertension who presents to [facility] emergency department with shortness of breath and hypoxia. He states he became SOB when he was doing yardwork the morning of 10/09 at around 9:30 am. Symptoms progressively worsened and sats were in the 60s when E VAC arrived and he was placed on BiPAP. His blood pressure was 159/70. He was given sublingual nitroglycerin and Lasix 40 mg IV in the emergency department and was continued on BiPAP. CXR shows vascular congestion. He reports compliance with HD schedule with last treatment on 10/07 reached target removal. He does report increased salt intake over the weekend. Denies cough, fever, hemoptysis. He states that over the last 2 weeks he has experienced midsternal and left sided chest pressure and dyspnea on exertion, lasting about 15 minutes and relieved with rest. Unable to walk 15 feet without developing symptoms. Not having chest pressure now. He was referred to Dr. Valencia with cardiology by his customs compliance manager and patient states stress test was "abnormal" and that Echo "showed a prior heart attack" and planned for cath 10/25/17. HD was arranged overnight and he had 2 kg removal and was able to come off Bipap. He says he feels improved but not back to baseline. Review of Systems Constitutional: DENIES: Fever Respiratory: COMPLAINS OF: Shortness of breath, DENIES: Cough Cardiovascular: COMPLAINS OF: Chest pain, Dyspnea on Exertion Past Family Social History Allergies: Coded Allergies: No Known Allergies (Verified Allergy, Unknown, 10/09/17) Past Medical History ESRD on HD. Folder Seamer is Dr. Luna COPD on 3 L home O2. Director Of Email Marketing is Dr. Chang Asthma Obesity HTN DM BPH Anemia Bronchiectasis Sleep apnea Chronic anemia GERD Past Surgical History LUE fistula. Cervical focal effusion Umbilical hernia repair Appendectomy Cataract surgery TURP Reported Medications Chlorpheniramine 4mg by mouth daily at bedtime Bethanechol 12.5 mill grams by mouth daily Formoterol 20 g neb twice a day Ferrous sulfate 134 mg by mouth daily Atorvastatin 40 g by mouth daily [place]-3 Fish oil Clonidine 0.1 mill grams by mouth every 6 hours Hydralazine 100 mill grams by mouth 3 times a day Diltiazem ER 180 mg by mouth daily Aspirin 81 mg by mouth daily Klonopin 0.5 mg by mouth every once Tuesday Lasix 40 mg by mouth daily Benzonatate 200 mg by mouth 3 times a day Pulmicort 0.5 mg neb twice a day Singular 10 mg by mouth daily Sodium bicarbonate 650 mg by mouth 3 times a day Omeprazole 20 mg by mouth daily On greasy and 2.5 mg by mouth daily Detemir 12 units subcutaneous daily at bedtime Glipizide 10 mill grams by mouth twice a day T3-5 thousand units by mouth daily Vitamin E 1 tab by mouth daily Glucosamine 1000 mg by mouth daily Patient states he is not taking chronic prednisone Family History Father of liver cancer at age 78 mother at age 63 from complications of diabetes A sister had head and neck cancer Social History He quit smoking 13-14 years ago. Denies use of alcohol or illicit drugs Physical Exam Vital Signs Vital Signs Date Time Temp Pulse Resp B/P (MAP) Pulse Ox O2 Delivery O2 Flow Rate FiO2 10/10/17 06:00 75 10/10/17 04:11 99 50 10/10/17 04:00 69 10/10/17 04:00 97.8 69 18 111/59 (76) 100 10/10/17 02:00 71 10/10/17 01:10 100 60 10/10/17 00:00 78 10/10/17 00:00 97.6 76 16 166/72 (103) 100 10/09/17 23:30 10/09/17 22:34 100 60 10/09/17 21:15 92 16 120/58 (78) 100 BiPAP 60 10/09/17 21:12 100 BiPAP 10/09/17 21:12 18 100 BiPAP 10/09/17 20:55 100 100 10/09/17 20:48 110 32 159/70 (99) 80 Physical Exam GENERAL: Pleasant talkative male, slightly dyspneic, sitting up in [facility] bed. Initially was on BiPAP now transitioned to nasal cannula SKIN: Warm and dry. HEAD: Atraumatic. Normocephalic. EYES: Pupils equal and round, reactive. ENT: No nasal bleeding or discharge. Mucous membranes pink and moist. NECK: Trachea midline. Unable to appreciate JVD due to body habitus. CARDIOVASCULAR: Regular rate and rhythm. No murmurs rubs or gallops. RESPIRATORY: Tachypneic but without accessory muscle use. Bibasilar Rales. No wheeze GASTROINTESTINAL: Abdomen protuberant, soft, non-tender, nondistended. MUSCULOSKELETAL: Extremities without clubbing, cyanosis, or edema. Thrill LUE. NEUROLOGICAL: Awake and alert. No obvious cranial nerve deficits. Motor grossly within normal limits. Normal speech, oriented. Laboratory Laboratory Tests Test 10/09/17 20:59 10/09/17 21:05 10/09/17 23:45 10/10/17 03:01 Blood Gas Puncture Site RT RADIAL Blood Gas Patient Temperature 98.6 Blood Gas HCO3 21 Blood Gas Base Excess -5.1 Blood Gas Oxygen Saturation 97 Arterial Blood pH 7.23 Arterial Blood Partial Pressure CO2 53 Arterial Blood Partial Pressure O2 154 Arterial Blood Oxygen Content 12.6 Arterial Blood Carboxyhemoglobin 1.1 Arterial Blood Methemoglobin 0.9 Blood Gas Hemoglobin 9.0 Oxygen Delivery Device BIPAP Blood Gas Ventilator Setting IPAP15/EPAP10 Blood Gas Inspired Oxygen 60 White Blood Count 9.1 7.8 Red Blood Count 3.11 2.95 Hemoglobin 9.6 9.1 Hematocrit 29.9 27.6 Mean Corpuscular Volume 96.2 93.5 Mean Corpuscular Hemoglobin 30.9 30.7 Mean Corpuscular Hemoglobin Concent 32.2 32.9 Red Cell Distribution Width 17.1 16.4 Platelet Count 290 227 Mean Platelet Volume 7.9 8.0 Neutrophils (%) (Auto) 67.5 82.6 Lymphocytes (%) (Auto) 21.5 8.0 Monocytes (%) (Auto) 7.8 7.9 Eosinophils (%) (Auto) 2.1 0.8 Basophils (%) (Auto) 1.1 0.7 Neutrophils # (Auto) 6.1 6.5 Lymphocytes # (Auto) 2.0 0.6 Monocytes # (Auto) 0.7 0.6 Eosinophils # (Auto) 0.2 0.1 Basophils # (Auto) 0.1 0.1 CBC Comment DIFF FINAL DIFF FINAL Differential Comment Blood Urea Nitrogen 45 Creatinine 4.54 Random Glucose 291 Total Protein 7.3 Albumin 3.6 Calcium Level 8.4 Alkaline Phosphatase 95 Aspartate Amino Transf (AST/SGOT) 27 Alanine Aminotransferase (ALT/SGPT) 23 Total Bilirubin 0.4 Sodium Level 142 Potassium Level 4.5 Chloride Level 108 Carbon Dioxide Level 24.4 Anion Gap 10 Estimat Glomerular Filtration Rate 13 Total Creatine Kinase 159 Creatine Kinase MB 4.4 Troponin I 0.42 B-Type Natriuretic Peptide 388 Nasal Screen MRSA (PCR) MRSA NOT DETECTED Date/Time Source Procedure Growth Status 10/09/17 21:00 Blood Peripheral Aerobic Blood Culture Pending Received 10/09/17 21:00 Blood Peripheral Anaerobic Blood Culture Pending Received 10/10/17 04:00 Nasal Aspirate Influenza Types A,B Antigen (JOS) - Final NEGATIVE FOR FLU A AND B ANTIGEN.... Complete Result Diagram: 10/10/17 0301 10/09/17 210 Caprini VTE Risk Assessment Caprini VTE Risk Assessment: Mod/High Risk (score >= 2) Caprini Risk Assessment Model Point Value = 1 Point Value = 2 Point Value = 3 Point Value = 5 Age 41-60 Minor surgery BMI > 25 kg/m2 Swollen legs Varicose veins or History of unexplained or recurrent spontaneous Oral contraceptives or hormone replacement Sepsis (< 1 month) Serious lung disease, including pneumonia (< 1 month) Abnormal pulmonary function Acute myocardial infarction Congestive heart failure (< 1 month) History of inflammatory bowel disease Medical patient at bed rest Age 61-74 Arthroscopic surgery Major open surgery (> 45 min) Laparoscopic surgery (> 45 min) Malignancy Confined to bed (> 72 hours) Immobilizing plaster cast Central venous access Age >= 75 History of VTE Family history of VTE Factor V Leiden Prothrombin [id number] Lupus anticoagulant Anticardiolipin antibodies Elevated serum homocysteine Heparin-induced thrombocytopenia Other congenital or acquired thrombophilia Stroke (< 1 month) Elective arthroplasty Hip, pelvis, or leg fracture Acute spinal cord injury (< 1 month) Prophylaxis Regimen Total Risk Factor Score Risk Level Prophylaxis Regimen 0-1 Low Early ambulation 2 Moderate Order ONE of the following: *Sequential Compression Device (SCD) *Heparin 5000 units SQ BID 3-4 Higher Order ONE of the following medications: *Heparin 5000 units SQ TID *Enoxaparin/Lovenox 40 mg SQ daily (WT < 150 kg, CrCl > 30 mL/min) *Enoxaparin/Lovenox 30 mg SQ daily (WT < 150 kg, CrCl > 10-29 mL/min) *Enoxaparin/Lovenox 30 mg SQ BID (WT < 150 kg, CrCl > 30 mL/min) AND/OR *Sequential Compression Device (SCD) 5 or more Highest Order ONE of the following medications: *Heparin 5000 units SQ TID (Preferred with Epidurals) *Enoxaparin/Lovenox 40 mg SQ daily (WT < 150 kg, CrCl > 30 mL/min) *Enoxaparin/Lovenox 30 mg SQ daily (WT < 150 kg, CrCl > 10-29 mL/min) *Enoxaparin/Lovenox 30 mg SQ BID (WT < 150 kg, CrCl > 30 mL/min) AND *Sequential Compression Device (SCD) Assessment and Plan Problem List: (1) ESRD (end stage renal disease) ICD Code: N18.6 - End stage renal disease Status: Chronic (2) Diabetes mellitus ICD Code: E11.9 - Diabetes mellitus Status: Chronic (3) Hypertension ICD Code: I10 - Hypertension Status: Chronic (4) Hyperlipidemia ICD Code: E78.5 - Hyperlipidemia Status: Chronic (5) acute/chronic respiratory failure requiring BiPAP Status: Acute (6) COPD exacerbation ICD Code: J44.1 - COPD exacerbation Status: Chronic (7) Asthma ICD Code: J45.909 - Unspecified asthma, uncomplicated Assessment and Plan NEURO: Anxiety Klonopin 0.5 mg by mouth daily as needed RESP: Acute respiratory failure secondary to volume overload/pulmonary edema. On BiPAP , resolved COPD on 3 L home O2. Director Of Email Marketing is Dr. Chang Asthma Bronchiectasis Sleep apnea Bipap for respiratory failure. Transitioned to [place] following HD with 2 kg removal. Continue Singulair 10 mg by mouth daily,chlorpheniramine 4 mg qhs. budesonide 0.5 mg neb bid, Formoterol (administer his own bid), CV: Hypertension Hyperlipidemia Angina Continuous atorvastatin 40 mg by mouth daily, aspirin 81 mg by mouth daily, Cardizem 180 mg, hydralazine 100 mg by mouth 3 times a day Patient has been having GARCIA and exertional angina x 2weeks. Reportedly abnormal stress and Echo. Not currently having CP but states he is amenable to proceeding with cath if it is recommended due to worsening symptoms. Cardiology consult to render opinion and possibly coordinate cath and HD post contrast since he still has residual renal function. Trend cardiac markers and EKG. Intial EKG no acute changes. GI: GERD Protonix 40 mg by mouth daily Heart healthy diet two thousand calorie ADA FEN/RENAL: ESRD on HD MWF. HD upon admission due to volume overload with removal of 2kg. Plan for additional HD later today. Continue Lasix 40 mg po daily. He still voids. Folder Seamer is Dr. Luna BPH s/p TURP ID: Afebrile without leukocytosis. Monitor for signs and symptoms of infection. HEME: Chronic anemia Iron deficiency Ferrous sulfate 134 mg by mouth daily ENDO: DM Detemir 12 units subcutaneous daily at bedtime Medium dose sliding scale AC/hs Hold glipizide,onglyza. Discussed with patient. She is not on chronic steroids. PROPH: Heparin 5000 units subcutaneous every 12 hours for DVT prophylaxis. Protonix 40 mg by mouth daily for stress ulcer prophylaxis. ACCESS: PIV Patient states he is full code Level 3 Consult Problem Qualifiers (1) Diabetes mellitus: Karen Gregory MD Oct 10, 2017 07:10
[2017-10-10] MEDS: DOCUSATE SODIUM 50 MG/SENNA 8.6 MG TAB PO SCH ×2 (07:59→21:10)
[2017-10-10] MEDS: PANTOPRAZOLE SOD 40 MG DELAYED RELEASE TAB PO SCH (07:59)
[2017-10-10] MEDS: INSULIN ASPART SUPPLEMENTAL SCALE SQ SCH ×4 (08:00→21:00)
[2017-10-10] MEDS: SODIUM CHLORIDE 0.9% FLUSH 10 ML FLUSH IV FLUSH SCH ×2 (08:00→21:10)
[2017-10-10] MEDS ORDERED: RESP: BUDESONIDE 0.5 MG/2 ML NEB NEB SCH (09:00)
[2017-10-10] MEDS ORDERED: FERROUS SULFATE 325 MG (65 MG ELEMENTAL IRON) TAB PO SCH (09:00)
[2017-10-10] MEDS ORDERED: PILL SPLITTER OTHER PRN (09:00)
[2017-10-10] MEDS ORDERED: BENZONATATE 100 MG CAP PO PRN (09:00)
[2017-10-10] MEDS: DILTIAZEM-CD 180 MG CAP ER PO SCH (09:47)
[2017-10-10] MEDS: CHOLECALCIFEROL (VIT D3) 5000 UNIT CAP PO SCH (09:47)
[2017-10-10] MEDS: hydrALAZINE HCL 100 MG TAB PO SCH ×3 (09:47→17:52)
[2017-10-10] MEDS: FUROSEMIDE 40 MG TAB PO SCH (09:47)
[2017-10-10] MEDS: MONTELUKAST SODIUM 10 MG TAB PO SCH (09:47)
[2017-10-10] MEDS: BETHANECHOL CHL 25 MG TAB PO SCH (09:48)
[2017-10-10] MEDS: SODIUM BICARBONATE 650 MG TAB PO SCH ×3 (09:48→17:52)
[2017-10-10] MEDS ORDERED: clonazePAM 0.5 MG TAB PO PRN (10:15)
[2017-10-10] MEDS: cloNIDine HCL 0.1 MG TAB PO SCH ×2 (11:41→17:52)
[2017-10-10] MEDS: FERROUS SULFATE 325 MG (65 MG ELEMENTAL IRON) TAB PO SCH (11:41)
[2017-10-10] MEDS: ACETAMINOPHEN 325 MG TAB PO PRN ×2 (11:41→21:45)
[2017-10-10] MEDS: ASPIRIN 81 MG CHEW TAB CHEW SCH (11:41)
[2017-10-10 12:29] LABS: ALBUMIN 3.3 GM/DL (3.4-5.0); AST (GOT) 45 U/L (15-37); BICARBONATE 32.6 MEQ/L (21.0-32.0); BLOOD UREA NITROGEN 34 MG/DL (7-18); CALCIUM 8.8 MG/DL (8.5-10.1); CHLORIDE 103 MEQ/L (98-107); CREATININE 3.44 MG/DL (0.60-1.30); GLOMERULAR FILTRATION RATE 17 ML/MIN (>89); GLUCOSE,RANDOM 155 MG/DL (74-106); SODIUM (NA) 141 MEQ/L (136-145)
[2017-10-10 12:31] LABS: ALT (GPT) 21 U/L (12-78)
[2017-10-10 12:34] LABS: ALKALINE PHOSPHATASE 87 U/L (45-117); TOTAL BILIRUBIN ADULT 0.5 MG/DL (0.2-1.0); TOTAL PROTEIN 6.6 GM/DL (6.4-8.2)
[2017-10-10 12:45] LABS: TROPONIN I 8.29 NG/ML (0.02-0.05)
[2017-10-10] MEDS ORDERED: ASPIRIN 81 MG CHEW TAB CHEW ONE (13:00)
--- NOTE | 2017-10-10 13:49 | PD.CONS ---
[facility] Service Nephrology Consult Requested By Dr. Gregory Reason for Consult Known to our services. ESRD on HD Primary Care Physician Lyn Medrano M.D. History of Present Illness The patient is an 82 yo [place] male who is known to our services for ESRD on HD. Last outpatient HD 10/07. The patient reports that he started to become SOB over the past 2 days and became increasingly concerned yesterday as he was severely short of breath and they decided to come to the ED for evaluation. He has a hx of pulmonary disease requiring constant O2 via NC. Reports he had a recent visit with Dr. Valencia, cardiology, and mentions that they had planned for cardiac work up to rule out cardiovascular reason for increasing shortness of breath. His typical dialysis treatment time is 3h & 45mins MWF, but he has a difficult time with allowing ultrafiltration as he says he cramps quite a bit with any fluid removal more than 2L. He was recently started on Marinol given anorexia and weight loss---says he has responded quite well to this. (Radha Luz) Review of Systems Respiratory: COMPLAINS OF: Cough, Shortness of breath (Radha Luz) Past Family Social History Allergies: Coded Allergies: No Known Allergies (Verified Allergy, Unknown, 10/09/17) Past Medical History ESRD on HD. Iv Rn is Dr. Luna COPD on 3 L home O2. 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 Bethanechol 25 Mg Tab 12.5 Mg PO DIRECTED Cartia Xt (Diltiazem ER 24 HR) 120 Mg Caper 180 Mg PO DAILY Vitamin D3 (Cholecalciferol) 5,000 Unit Cap 5,000 Units PO DAILY Vitamin E (Vitamin E Acetate) 400 Unit Capsule 1 Tab PO DAILY Klonopin (Clonazepam) 0.5 Mg Tab 0.5 Mg PO MON,WED,FRI Sodium Bicarbonate 650 Mg Tab 650 Mg PO TIDPC Prednisone 10 Mg Tab 10 Mg PO DIRECTED Onglyza (Saxagliptin) 5 Mg Tab 2.5 Mg PO DAILY Omeprazole 20 Mg Tab 20 Mg PO DAILY Montelukast (Montelukast Sodium) 10 Mg Tab 10 Mg PO DAILY Klonopin (Clonazepam) 0.5 Mg Tab 0.5 Mg PO HS Hydralazine (Hydralazine HCl) 100 Mg Tab 100 Mg PO TID Take with meals Glucosamine (Glucosamine Sulfate) 1,000 Mg Cap 1,000 Mg PO DAILY Glipizide 10 Mg Tab 10 Mg PO BIDAC Take 30 minutes before a meal Furosemide 40 Mg Tab 40 Mg PO DAILY [place]-3 Fish Oil/Vitamin (Fish Oil-Cholecalciferol) 1,000-1,000 Mg Cap 1 Cap PO DAILY Feosol (Ferrous Sulfate) 325 Mg (65 Mg Iron) Tab 134 Mg PO DAILY Diltiazem ER 24 HR 180 Mg Sammy 180 Mg PO DAILY Clonidine (Clonidine HCl) 0.1 Mg Tab 0.1 Mg PO Q6HR Clonazepam 2 Mg Tab 2 Mg PO HS Allergy (Chlorpheniramine Maleate) 4 Mg Tab 4 Mg PO HS Pulmicort Respules (Budesonide) 0.5 Mg/2 Ml Neb 0.5 Mg NEB DAILY NEB Benzonatate 100 Mg Cap 200 Mg PO TID PRN Atorvastatin (Atorvastatin Calcium) 40 Mg Tab 40 Mg PO HS Ativan (Lorazepam) 0.5 Mg Tab 0.5 Mg PO Q6HR PRN Aspirin 81 Mg Chew 81 Mg CHEW ONCE Active Ordered Medications Current Medications Medications (Trade) Dose Ordered Sig/Marion Route Start Time Stop Time Status Last Admin Sodium Chloride 1,000 ml @ 0 mls/hr Q0M PRN OTHER 10/09/17 22:32 (Heparin Inj) 8,000 units UNSCH PRN IV FLUSH 10/09/17 22:45 (Heparin Inj) 1,000 units Q1H PRN IV FLUSH 10/09/17 22:45 Sodium Chloride 1,000 ml @ 200 mls/hr Q5H PRN IV 10/09/17 22:32 Sodium Chloride 1,000 ml @ 0 mls/hr Q0M PRN OTHER 10/09/17 22:32 (Mannitol Inj) 12.5 gm UNSCH PRN IV 10/09/17 22:45 Albumin Human 100 ml @ 60 mls/hr UNSCH PRN IV 10/09/17 22:45 (NS Flush) 5 ml UNSCH PRN IV FLUSH 10/09/17 22:45 (Zofran Inj) 4 mg UNSCH PRN IV PUSH 10/09/17 22:45 (Tylenol) 650 mg UNSCH PRN PO 10/09/17 22:45 10/10/17 11:41 (Benadryl) 25 mg UNSCH PRN PO 10/09/17 22:45 (Nitrostat Sl) 0.4 mg UNSCH PRN SL 10/09/17 22:45 (Catapres) 0.1 mg UNSCH PRN PO 10/09/17 22:45 (Gelfoam 12 Mm/7 Mm Top) 1 foam UNSCH PRN TOP 10/09/17 22:45 (NS Flush) 2 ml UNSCH PRN IV FLUSH 10/09/17 23:00 (NS Flush) 2 ml BID IV FLUSH 10/10/17 09:00 10/10/17 08:00 (Tylenol) 650 mg Q6H PRN PO 10/09/17 23:00 (Protonix) 40 mg DAILY PO 10/10/17 09:00 10/10/17 07:59 (Zofran Inj) 4 mg Q6H PRN IV PUSH 10/09/17 23:00 (Duoneb Neb) 1 ampule Q6HR NEB INH 10/10/17 04:00 10/10/17 07:52 (Albuterol Neb) 2.5 mg Q2HR NEB PRN INH 10/09/17 23:00 Miscellaneous Information 1 Q361D XX 10/09/17 23:00 (Chlorhexidine 2% Cloth) 3 pack Taper DAILY@04 TOP 10/10/17 04:00 10/06/18 03:59 10/10/17 04:00 (Chlorhexidine 2% Cloth) 3 pack UNSCH PRN TOP 10/09/17 23:00 (Karie-Colace) 1 tab BID PO 10/10/17 09:00 10/10/17 07:59 (Milk Of Magnesia Liq) 30 ml Q12H PRN PO 10/09/17 23:00 (Senokot) 17.2 mg Q12H PRN PO 10/09/17 23:00 (Dulcolax Supp) 10 mg DAILY PRN RECTAL 10/09/17 23:00 (Lactulose Liq) 30 ml DAILY PRN PO 10/09/17 23:00 (Levemir Inj) 12 units HS SQ 10/09/17 23:00 10/09/17 23:00 (D50w (Vial) Inj) 50 ml UNSCH PRN IV PUSH 10/09/17 23:00 (Glucagon Inj) 1 mg UNSCH PRN OTHER 10/09/17 23:00 (NovoLOG SUPPLEMENTAL SCALE) 1 ACHS SLIDING SCALE SQ 10/10/17 08:00 10/10/17 12:00 (Aspirin Chew) 81 mg DAILY CHEW 10/10/17 11:00 10/10/17 11:41 (Lipitor) 40 mg HS PO 10/10/17 21:00 (Tessalon) 200 mg TID PRN PO 10/10/17 09:00 (Urecholine) 12.5 mg DAILY PO 10/10/17 09:00 10/10/17 09:48 (Vitamin D3) 5,000 units DAILY PO 10/10/17 09:00 10/10/17 09:47 (Catapres) 0.1 mg Q6HR PO 10/10/17 12:00 10/10/17 11:41 (Cardizem Cd) 180 mg DAILY PO 10/10/17 09:00 10/10/17 09:47 (Lasix) 40 mg DAILY PO 10/10/17 09:00 10/10/17 09:47 (Apresoline) 100 mg TID PO 10/10/17 09:00 10/10/17 12:21 (Singulair) 10 mg DAILY PO 10/10/17 09:00 10/10/17 09:47 (Sodium Bicarbonate) 650 mg TIDPC PO 10/10/17 09:30 10/10/17 12:20 Patient Own Medication PT OWN MED: CHLORPHENIRAMINE 4MG TABLET... HS PO 10/10/17 21:00 Future Hold Patient Own Medication PT OWN MED: PERFOROM... BID NEB NEB 10/10/17 20:00 Future Hold (Pill Splitter) 1 ea UNSCH PRN OTHER 10/10/17 09:00 (Ferrous Sulfate) 325 mg DAILY PO 10/10/17 11:00 10/10/17 11:41 (KlonoPIN) 0.5 mg DAILY PRN PO 10/10/17 10:15 (Pulmicort Respule Neb) 0.5 mg BID NEB NEB 10/10/17 20:00 Heparin Sodium/ Dextrose 250 ml @ 10 mls/hr TITRATE PRN IV 10/10/17 13:00 (Aspirin Chew) 81 mg DAILY CHEW 10/11/17 09:00 Family History NC Social History Previous tobacco use but quit about 10 years ago Denies EtOH Denies illicits Lives locally with his . (Radha Luz) Physical Exam Vital Signs Vital Signs Date Time Temp Pulse Resp B/P (MAP) Pulse Ox O2 Delivery O2 Flow Rate FiO2 10/10/17 12:21 26 10/10/17 12:00 98.2 93 39 158/85 (109) 89 10/10/17 12:00 93 10/10/17 10:00 82 10/10/17 08:00 98.3 75 24 148/65 (92) 96 10/10/17 08:00 75 10/10/17 07:52 92 Nasal Cannula 4.50 10/10/17 06:00 75 10/10/17 04:11 99 50 10/10/17 04:00 69 10/10/17 04:00 97.8 69 18 111/59 (76) 100 10/10/17 02:00 71 10/10/17 01:10 100 60 10/10/17 00:00 78 10/10/17 00:00 97.6 76 16 166/72 (103) 100 10/09/17 23:30 10/09/17 22:34 100 60 10/09/17 21:15 92 16 120/58 (78) 100 BiPAP 60 10/09/17 21:12 100 BiPAP 10/09/17 21:12 18 100 BiPAP 10/09/17 20:55 100 100 10/09/17 20:48 110 32 159/70 (99) 80 Physical Exam GENERAL: Sitting on side of bed eating. NAD, but is notably tachypneic. SKIN: Warm and dry. HEAD: Atraumatic. Normocephalic. EYES: Pupils equal and round. No scleral icterus. No injection or drainage. ENT: No nasal bleeding or discharge. Mucous membranes pink and moist. NECK: Trachea midline. No JVD. CARDIOVASCULAR: Regular rate and rhythm. RESPIRATORY: tachypnea, CTA but diminished GASTROINTESTINAL: Abdomen soft, non-tender, nondistended. Hepatic and splenic margins not palpable. MUSCULOSKELETAL: Extremities without clubbing, cyanosis, 1-2+ pitting edema BLE up to knees. NEUROLOGICAL: Awake and alert.Normal speech. PSYCHIATRIC: Appropriate mood and affect; insight and judgment normal. Laboratory Laboratory Tests Test 10/09/17 20:59 10/09/17 21:05 10/09/17 23:45 10/10/17 03:01 Blood Gas Puncture Site RT RADIAL Blood Gas Patient Temperature 98.6 Blood Gas HCO3 21 Blood Gas Base Excess -5.1 Blood Gas Oxygen Saturation 97 Arterial Blood pH 7.23 Arterial Blood Partial Pressure CO2 53 Arterial Blood Partial Pressure O2 154 Arterial Blood Oxygen Content 12.6 Arterial Blood Carboxyhemoglobin 1.1 Arterial Blood Methemoglobin 0.9 Blood Gas Hemoglobin 9.0 Oxygen Delivery Device BIPAP Blood Gas Ventilator Setting IPAP15/EPAP10 Blood Gas Inspired Oxygen 60 White Blood Count 9.1 7.8 Red Blood Count 3.11 2.95 Hemoglobin 9.6 9.1 Hematocrit 29.9 27.6 Mean Corpuscular Volume 96.2 93.5 Mean Corpuscular Hemoglobin 30.9 30.7 Mean Corpuscular Hemoglobin Concent 32.2 32.9 Red Cell Distribution Width 17.1 16.4 Platelet Count 290 227 Mean Platelet Volume 7.9 8.0 Neutrophils (%) (Auto) 67.5 82.6 Lymphocytes (%) (Auto) 21.5 8.0 Monocytes (%) (Auto) 7.8 7.9 Eosinophils (%) (Auto) 2.1 0.8 Basophils (%) (Auto) 1.1 0.7 Neutrophils # (Auto) 6.1 6.5 Lymphocytes # (Auto) 2.0 0.6 Monocytes # (Auto) 0.7 0.6 Eosinophils # (Auto) 0.2 0.1 Basophils # (Auto) 0.1 0.1 CBC Comment DIFF FINAL DIFF FINAL Differential Comment Blood Urea Nitrogen 45 Creatinine 4.54 Random Glucose 291 Total Protein 7.3 Albumin 3.6 Calcium Level 8.4 Alkaline Phosphatase 95 Aspartate Amino Transf (AST/SGOT) 27 Alanine Aminotransferase (ALT/SGPT) 23 Total Bilirubin 0.4 Sodium Level 142 Potassium Level 4.5 Chloride Level 108 Carbon Dioxide Level 24.4 Anion Gap 10 Estimat Glomerular Filtration Rate 13 Total Creatine Kinase 159 Creatine Kinase MB 4.4 Troponin I 0.42 B-Type Natriuretic Peptide 388 Nasal Screen MRSA (PCR) MRSA NOT DETECTED Test 10/10/17 11:20 Blood Urea Nitrogen 34 Creatinine 3.44 Random Glucose 155 Total Protein 6.6 Albumin 3.3 Calcium Level 8.8 Alkaline Phosphatase 87 Aspartate Amino Transf (AST/SGOT) 45 Alanine Aminotransferase (ALT/SGPT) 21 Total Bilirubin 0.5 Sodium Level 141 Potassium Level 4.0 Chloride Level 103 Carbon Dioxide Level 32.6 Anion Gap 5 Estimat Glomerular Filtration Rate 17 Total Creatine Kinase 323 Creatine Kinase MB 19.9 Creatine Kinase MB % 6.2 Troponin I 8.29 Date/Time Source Procedure Growth Status 10/09/17 21:00 Blood Peripheral Aerobic Blood Culture - Preliminary NO GROWTH IN 1 DAY Resulted 10/09/17 21:00 Blood Peripheral Anaerobic Blood Culture - Preliminary NO GROWTH IN 1 DAY Resulted 10/10/17 04:00 Nasal Aspirate Influenza Types A,B Antigen (JOS) - Final NEGATIVE FOR FLU A AND B ANTIGEN.... Complete (Radha Luz) Result Diagram: 10/10/17 0301 10/10/17 1120 Imaging Last Impressions Chest X-Ray 10/09/172051 Signed Impressions: Service Date/Time: Monday, October 09, 2017 21:35 - CONCLUSION: Mild bibasilar consolidation 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 Riley Decker MD (Radha Luz) Assessment and Plan Problem List: (1) ESRD (end stage renal disease) ICD Codes: N18.6 - End stage renal disease Status: Chronic Plan: Pt received HD early this AM and appears to have tolerated session well. Will plan on HD again this evening as there are apparent plans to proceed with cardiac cath as soon as tomorrow. UF 3L as tolerated Discussed with the patient regarding difficulties achieving adequate ultrafiltration in the outpatient unit as he has severe cramping. Advised we may have to increase time. Medications should be adjusted for the patient's ESRD. Avoid gadolinium. (2) COPD exacerbation ICD Codes: J44.1 - COPD exacerbation Status: Chronic Plan: Sees Dr. Benton as outpatient. Continue on nebulizers as scheduled (3) CHF exacerbation ICD Codes: I50.9 - Heart failure, unspecified Status: Acute Plan: Volume status will improve with HD Apparent cath in plans (4) Hypertension ICD Codes: I10 - Hypertension Status: Chronic (5) Anemia ICD Codes: D64.9 - Anemia Status: Acute Plan: Repeat CBC with Fe panel. Epogen with HD (Radha Luz) Assessment and Plan The patient was scheduled for an elective cardiac catheterization next month but unfortunately has presented with an acute ischemic event with associated CHF. Still has significant fluid retention with dyspnea. Second dialysis session later today to improve volume status. Patient unable to lie flat the cardiac catheterization secondary to dyspnea but hopefully this will improve with his second dialysis session with tentative plan for catheterization tomorrow. Case discussed with cardiology. The exam, history, and the medical decision-making described in the above note were completed with the assistance of the PA-C. I reviewed and agree with the findings presented. I attest that I had a [id number] encounter with the patient on the same day, and personally performed and documented my assessment and findings in the medical record. (Los Luna MD) Radha Luz Oct 10, 2017 13:49 Los Luna MD Oct 10, 2017 16:01
[2017-10-10] MEDS ORDERED: EPOETIN ALFA 10,000 UNITS/ML VIAL IV PUSH PRN (14:00)
[2017-10-10] MEDS ORDERED: FUROSEMIDE 40 MG/4 ML VIAL IV PUSH ONE (14:00)
[2017-10-10 14:14] LABS: HEPATITIS A AB IGM NEGATIVE (NEGATIVE); HEPATITIS B CORE AB IGM NEGATIVE (NEGATIVE); HEPATITIS B SURFACE ANTIGEN NEGATIVE (NEGATIVE); HEPATITIS C AB IgG NEGATIVE (NEGATIVE)
[2017-10-10 15:30] LABS: HEMATOCRIT 27.2 % (39.0-51.0); MEAN CELL VOLUME 93.9 FL (80.0-100.0); MEAN CORPUSCULAR HEMOGLOBIN 31.2 PG (27.0-34.0); MEAN CORPUSCULAR HGB CONC 33.2 % (32.0-36.0); MEAN PLATELET VOLUME 7.9 FL (7.0-11.0); PLATELET COUNT 229 TH/MM3 (150-450); RED BLOOD COUNT 2.89 MIL/MM3 (4.50-5.90); RED CELL DISTRIBUTION WIDTH 16.4 % (11.6-17.2); WHITE BLOOD COUNT 7.4 TH/MM3 (4.0-11.0)
[2017-10-10 15:41] LABS: PROTHROMBIN TIME - PATIENT 10.6 SEC (9.8-11.6)
[2017-10-10] MEDS: HEPARIN-D5W 25,000 U/250 ML 250 ML IV PRN (15:44)
[2017-10-10 16:26] LABS: TROPONIN I 7.86 NG/ML (0.02-0.05)
--- NOTE | 2017-10-10 18:17 | EKG ---
Date Performed: 10/10/2017 Time Performed: 08:33:47 PTAGE: 82 years EKG: Sinus rhythm WITH OCCASIONAL SUPRAVENTRICULAR PREMATURE COMPLEXES Consider ANTEROSEPTAL MYOCARDIAL INFARCTION , O F INDETERMINATE AGE. Late R wave transition. ABNORMAL ECG PREVIOUS TRACING : 10/09/2017 20.51 DOCTOR: Presley Webb Interpretating Date/Time 10/10/2017 18:17:01
--- NOTE | 2017-10-10 18:17 | EKG ---
Date Performed: 10/09/2017 Time Performed: 20:51:55 PTAGE: 82 years EKG: SUPRAVENTRICULAR TACHYCARDIA Consider SEPTAL MYOCARDIAL INFARCTION-age undeterminate. Cant interpret rhythm due to baseline wandering artifact. ABNORMAL ECG PREVIOUS TRACING : 08/02/2017 15.24.49 DOCTOR: Presley Webb Interpretating Date/Time 10/10/2017 18:15:30
[2017-10-10] MEDS ORDERED: PERFOROMIST 20 MCG/2 ML NEB SCH (20:00)
[2017-10-10] MEDS: RESP: BUDESONIDE 0.5 MG/2 ML NEB NEB SCH (20:59)
[2017-10-10] MEDS ORDERED: ATORVASTATIN 40 MG TAB PO SCH (21:00)
[2017-10-10] MEDS: INSULIN DETEMIR 100 UNITS/ML VIAL SQ SCH (21:00)
[2017-10-10] MEDS ORDERED: CHLORPHENIRAMINE 4 MG PO SCH (21:00)
--- NOTE | 2017-10-10 22:32 | MB ---
cc: PARVIN LERNER DATE OF CONSULTATION 10/10/2017 HISTORY Mr. Wood is an 82-year-old white male with a history of end-stage renal disease on hemodialysis. He has developed progressive dyspnea over the last two days. He also has paroxysmal nocturnal dyspnea and orthopnea. He has history of COPD and is on oxygen at home. He is a patient of Dr. Valencia and recent stress test in his office was abnormal. Cardiac catheterization was planned in the near future. PAST MEDICAL HISTORY The patient has a history of: 1. End-stage renal disease, seen by Dr. Luna. 2. Chronic obstructive pulmonary disease on 3 liters of home oxygen. 3. Asthma. 4. Obesity. 5. Hypertension. 6. Diabetes mellitus. 7. Benign prostatic hypertrophy. 8. Anemia. 9. Bronchiectasis. 10. Sleep apnea. 11. Gastroesophageal reflux disease. 12. Left upper extremity A-V fistula. 13. Cervical fusion. 14. Umbilical hernia repair. 15. Appendectomy. 16. Cataract surgery. 17. Transurethral resection of the prostate. MEDICATIONS Include: 1. Aspirin. 2. Atorvastatin. 3. Benzonatate. 4. Pulmicort. 5. Clonazepam. 6. Clonidine. 7. Diltiazem. 8. Feosol. 9. [place] 3. 10. Furosemide. 11. Glipizide. 12. Glucosamine. 13. Hydralazine. 14. Klonopin. 15. Montelukast. 16. Omeprazole. 17. Onglyza. 18. Prednisone. 19. Sodium bicarbonate. 21. Vitamin E. 22. Vitamin D3. 23. Cartia. 24. Bethanechol. 25. Levemir insulin. 26. Pulmicort. 27. Perforomist. 28. Prednisone. ALLERGIES None. SOCIAL HISTORY The patient does not smoke, quit 10 years ago. He does not drink alcohol. He is and accompanied by his . FAMILY HISTORY Negative for heart disease. REVIEW OF SYSTEMS Otherwise negative. PHYSICAL EXAMINATION VITAL SIGNS: Blood pressure 120/57, pulse 55 and regular. HEENT: Negative. NECK: 2+ carotid upstrokes. No bruits. LUNGS: Few bibasilar crackles. HEART: Regular with no murmur. ABDOMEN: Soft. No bruits. EXTREMITIES: Trace edema. 1+ distal pulses. There is a left upper extremity fistula. EKG is reviewed and showed normal sinus rhythm with nonspecific ST-T changes. LABORATORY DATA Hemoglobin 9.0. Potassium 4.0. Creatinine 3.44. AST 45, ALT 21. CK 323 and 317. Troponin 6.43, 8.29 and 7.86. First troponin recorded was 0.42. DIAGNOSES 1. Non-ST elevation myocardial infarction. 2. Coronary artery disease with abnormal nuclear myocardial perfusion scan. 3. End-stage renal disease on hemodialysis. 4. Congestive heart failure. 5. Chronic obstructive pulmonary disease on home oxygen. 6. Hypertension. 7. Diabetes mellitus. 8. Anemia. DISPOSITION Mr. Wood has suffered non ST elevation CO. We will need to proceed with cardiac catheterization but he will need dialysis first. This cannot be completed this afternoon since the dialysis unit is busy. We will proceed with dialysis later today and try to remove as much fluid as possible. If possible, we will proceed with cardiac catheterization and coronary intervention if necessary tomorrow. The plan was discussed with the patient and his . They understand the risks and benefits, and wish to proceed. Parvin Lerner MD OQ/KK /5:27 PM /10:03 PM [id number]
[2017-10-10 23:11] LABS: IRON (FE) 48 MCG/DL (65-175); PHOSPHORUS 2.3 MG/DL (2.5-4.9)
[2017-10-10 23:15] LABS: % SATURATION IRON PROFILE 20.3 % (20-50); FERRITIN 1021 NG/ML (26-388); TOTAL IRON BINDING CAPACITY 237 MCG/DL (250-450)
[2017-10-11] VITALS (18 sets, daily range): BP systolic 106–156; BP diastolic 47–69; PULSE 72–109; RESP 19–55; TEMP 97–98.8; O2SAT 85–100
[2017-10-11 02:45] LABS: BASOPHIL # 0.1 TH/MM3 (0-0.2); EOSINOPHIL # 0.1 TH/MM3 (0-0.4); EOSINOPHIL % 1.9 % (0.0-4.0); HEMATOCRIT 24.1 % (39.0-51.0); HEMOGLOBIN 8.1 GM/DL (13.0-17.0); LYMPH % 10.4 % (9.0-44.0); LYMPHOCYTE # 0.5 TH/MM3 (1.0-4.8); MEAN CELL VOLUME 92.8 FL (80.0-100.0); MEAN CORPUSCULAR HEMOGLOBIN 31.1 PG (27.0-34.0); MEAN CORPUSCULAR HGB CONC 33.5 % (32.0-36.0); MEAN PLATELET VOLUME 7.2 FL (7.0-11.0); MONO % 10.6 % (0.0-8.0); MONOCYTE # 0.6 TH/MM3 (0-0.9); NEUT % 76.1 % (16.0-70.0); PLATELET COUNT 191 TH/MM3 (150-450); RED CELL DISTRIBUTION WIDTH 16.5 % (11.6-17.2); WHITE BLOOD COUNT 5.2 TH/MM3 (4.0-11.0)
[2017-10-11 03:15] LABS: ALBUMIN 3.4 GM/DL (3.4-5.0); ALKALINE PHOSPHATASE 84 U/L (45-117); ALT (GPT) 20 U/L (12-78); AST (GOT) 39 U/L (15-37); BICARBONATE 33.6 MEQ/L (21.0-32.0); BLOOD UREA NITROGEN 24 MG/DL (7-18); CALCIUM 8.4 MG/DL (8.5-10.1); CHLORIDE 101 MEQ/L (98-107); CHOLESTEROL 129 MG/DL (120-200); CHOLESTEROL/ HDL RATIO 3.39 RATIO; CREATININE 3.05 MG/DL (0.60-1.30); GLOMERULAR FILTRATION RATE 20 ML/MIN (>89); GLUCOSE,RANDOM 148 MG/DL (74-106); LDL CHOLESTEROL 67 MG/DL (0-99); MAGNESIUM 1.9 MG/DL (1.5-2.5); PHOSPHORUS 2.8 MG/DL (2.5-4.9); SODIUM (NA) 142 MEQ/L (136-145); TOTAL BILIRUBIN ADULT 0.5 MG/DL (0.2-1.0); TOTAL PROTEIN 6.8 GM/DL (6.4-8.2); TRIGLYCERIDES 118 MG/DL (42-150)
[2017-10-11 03:36] LABS: TROPONIN I 5.27 NG/ML (0.02-0.05)
[2017-10-11] MEDS: CHLORHEXIDINE GLUCONATE 2 % 1 PACK (2 CLOTHS) TOP SCH (04:00)
[2017-10-11] MEDS: RESP: ALBUTEROL 2.5 MG/IPRATROPIUM 0.5 MG NEB (SCH) INH ×4 (04:26→22:15)
[2017-10-11] MEDS: cloNIDine HCL 0.1 MG TAB PO SCH ×5 (05:10→23:57)
[2017-10-11] MEDS: FERROUS SULFATE 325 MG (65 MG ELEMENTAL IRON) TAB PO SCH (07:58)
[2017-10-11] MEDS: DOCUSATE SODIUM 50 MG/SENNA 8.6 MG TAB PO SCH ×2 (07:58→21:00)
[2017-10-11] MEDS: ASPIRIN 81 MG CHEW TAB CHEW SCH (07:59)
[2017-10-11] MEDS: BETHANECHOL CHL 25 MG TAB PO SCH (07:59)
[2017-10-11] MEDS: FUROSEMIDE 40 MG TAB PO SCH (07:59)
[2017-10-11] MEDS: MONTELUKAST SODIUM 10 MG TAB PO SCH (07:59)
[2017-10-11] MEDS: PANTOPRAZOLE SOD 40 MG DELAYED RELEASE TAB PO SCH (07:59)
[2017-10-11] MEDS: SODIUM BICARBONATE 650 MG TAB PO SCH ×3 (07:59→18:30)
[2017-10-11] MEDS: INSULIN ASPART SUPPLEMENTAL SCALE SQ SCH ×3 (08:00→21:00)
[2017-10-11] MEDS: DILTIAZEM-CD 180 MG CAP ER PO SCH (08:00)
[2017-10-11] MEDS: hydrALAZINE HCL 100 MG TAB PO SCH ×3 (08:00→18:00)
[2017-10-11] MEDS: CHOLECALCIFEROL (VIT D3) 5000 UNIT CAP PO SCH (08:03)
[2017-10-11] MEDS: SODIUM CHLORIDE 0.9% FLUSH 10 ML FLUSH IV FLUSH SCH ×2 (08:12→22:58)
[2017-10-11] MEDS ORDERED: ASPIRIN 81 MG CHEW TAB CHEW SCH (09:00)
[2017-10-11] MEDS: RESP: BUDESONIDE 0.5 MG/2 ML NEB NEB SCH ×2 (09:22→22:15)
[2017-10-11] MEDS: ACETAMINOPHEN 325 MG TAB PO PRN ×2 (10:12→23:01)
[2017-10-11] MEDS: HEPARIN-D5W 25,000 U/250 ML 250 ML IV PRN (10:17)
--- NOTE | 2017-10-11 10:54 | HHI.NPPN ---
Subjective History of Present Illness The patient is an 82 yo [place] male who is known to our services for ESRD on HD. Last outpatient HD 10/07. The patient reports that he started to become SOB over the past 2 days and became increasingly concerned yesterday as he was severely short of breath and they decided to come to the ED for evaluation. He has a hx of pulmonary disease requiring constant O2 via NC. Reports he had a recent visit with Dr. Valencia, cardiology, and mentions that they had planned for cardiac work up to rule out cardiovascular reason for increasing shortness of breath. His typical dialysis treatment time is 3h & 45mins MWF, but he has a difficult time with allowing ultrafiltration as he says he cramps quite a bit with any fluid removal more than 2L. He was recently started on Marinol given anorexia and weight loss---says he has responded quite well to this. Interval History Patient indicating his respirations have improved significantly with second dialysis session yesterday. Unfortunately goal of 3 L could not be achieved secondary to hemodynamic issues. Ultrafiltration of about [address] Objective Data Data Vital Signs Date Time Temp Pulse Resp B/P (MAP) Pulse Ox O2 Delivery O2 Flow Rate FiO2 10/11/17 10:00 87 10/11/17 09:25 96 Nasal Cannula 4.00 10/11/17 08:00 73 10/11/17 08:00 98.0 73 29 127/61 (83) 97 10/11/17 06:00 77 10/11/17 04:00 72 10/11/17 04:00 97.0 72 19 128/58 (81) 100 10/11/17 02:00 85 10/11/17 00:09 18 10/11/17 00:00 97.6 77 21 122/62 (82) 91 10/11/17 00:00 77 10/11/17 00:00 77 10/10/17 22:00 83 10/10/17 20:59 96 Nasal Cannula 4.50 10/10/17 20:00 90 10/10/17 20:00 97.3 90 36 140/64 (89) 93 10/10/17 18:00 66 10/10/17 16:00 65 10/10/17 16:00 98.8 65 31 121/57 (78) 98 10/10/17 14:00 78 10/10/17 12:21 26 10/10/17 12:00 98.2 93 39 158/85 (109) 89 10/10/17 12:00 93 -: 10/11/17 0239 10/11/17 0239 Physical Exam Eyes Eye Exam: Sclera White Pulmonary Resp Exam: Clear Bilaterally, Breath Sounds Equal, Decreased Bases Cardiology CV Exam: Regular, Normal Sinus Rhythm, Good Perfusion Gastrointestinal/Abdomen GI Exam: Soft, Non-Tender Integumentary Skin Exam: Clear, Warm, Normal Turgor Extremeties Extremities Exam: Trace Edema, Pitting Edema Psychiatric Psych Exam: Appropriate Responses Assessment/Plan Discussed Condition With: Patient, Spouse Problem List: (1) ESRD (end stage renal disease) ICD Codes: N18.6 - End stage renal disease Status: Chronic Plan: Patient scheduled for cardiac catheterization today as discussed with the high risk case manager. I will plan for hemodialysis tomorrow unless otherwise indicated. Hemodialysis orders entered for tomorrow. Medications should be adjusted for the patient's ESRD. Avoid gadolinium. (2) COPD exacerbation ICD Codes: J44.1 - COPD exacerbation Status: Chronic Plan: Sees Dr. Benton as outpatient. Continue on nebulizers as scheduled (3) CHF exacerbation ICD Codes: I50.9 - Heart failure, unspecified Status: Acute Plan: Improve clinically and most likely precipitated by ischemic event. (4) Hypertension ICD Codes: I10 - Hypertension Status: Chronic (5) Anemia ICD Codes: D64.9 - Anemia Status: Acute Plan: Venofer as ordered. Continue Epogen. Plan Total time spent in direct patient care 38 minutes. Los Luna MD Oct 11, 2017 10:54
[2017-10-11] MEDS ORDERED: IOHEXOL 350 MG/ML 50 ML BTL (for Cath Lab) OTHER ONE (15:25)
[2017-10-11] MEDS ORDERED: IOHEXOL 350 MG/ML 100 ML BTL (for Cath Lab) OTHER ONE (15:25)
[2017-10-11] MEDS ORDERED: HEPARIN-NS/PF INJ 1,000 ML ONE (15:32)
[2017-10-11] MEDS ORDERED: MIDAZOLAM HCL 2 MG/2 ML VIAL ONE (15:42)
[2017-10-11] MEDS ORDERED: HEPARIN SODIUM - IV 10,000 UNITS/10 ML VIAL ONE (16:16)
[2017-10-11] MEDS ORDERED: TICAGRELOR 90 MG TAB PO ONE (16:58)
--- NOTE | 2017-10-11 17:21 | CATHPROC ---
Infused Medical Technology HIS Report Study Information Study Number Admission Scheduled Start Study Start [id number] Oct 09 2017 10:41PM 10/11/2017 Oct 11 2017 3:26PM [place] Service Cardiac Catheterization Admit Source Facility Department Emergency department [facility] - [place] Worker Physician and Clinical Staff Initial Parvin Soriano Sat Instructor Reyna Ashley BSN Sat Instructor Richie Fortune,ERNIE Recorder Jerry Mccloud,RT(R) Scrub Giulia Gardiner,RT(R) Procedures Performed Procedure Location (Site) Vessel Name Angiogram LV LV Ventricle Coronary Angiograms LCA Left Coronary Coronary Angiograms RCA Right Coronary L Heart Cath PTCA LAD Mid Left Coronary Stent LAD Mid Left Coronary Wire insertion Fem Art (right) Femoral Art Equipment Time Mixed Livestock Farmer Description Size Mfg Part Number Used/Scraped WIRE, BALANCE MIDDLEWEIGHT [id number] 16:26 POP [employer] 190CM Used 190CM *[id number] TRANSDUCER, TRUWAVE [id number] 15:36 NUÑEZ BULL * Used W/STOCKCOCK *[id number] STENT, 4.5 X 20MM REBEL [id number] 16:51 BOSTON SCIENTIFIC 4.5 X 20MM Used MONORAIL *[id number] *[id number] *[id number] *[id number] *[id number] WIRE, HYDROSTEER 150CM [id number] 16:02 DAIG/[employer]. [employer]EE[employer] MEDICAL 150CM Used ANGLED GLIDE *[id number] WIRE, WHOLEY .035 MOD-J 300 16:00 MALLINCKRODT 300CM [id number] Used CM [id number] 15:36 Quantivo IND[employer]RIES PACK, CCL CUSTOM * Used *[id number] 15:36 Quantivo PACER PEN, SKIN DUAL W/ RULER * Used *[id number] 16:39 MEDTRONIC BALLOON, 2.5 X 15MM EUPHORA 15MM Used *[id number] 16:32 MEDTRONIC BALLOON, 2.5 X 15MM EUPHORA 15MM Used *[id number] 16:42 MEDTRONIC BALLOON, 3.0 X 15MM EUPHORA 15MM Used *[id number] PIG ANG 145 DXTERITY 15:49 MEDTRONIC FR 5 [id number] Used CATHETER [id number] 16:20 MERIT MEDICAL 30 ASHUTOSH INDEFLATOR Used *[id number] 16:17 View Medical MEDICAL SHEATH, FR6.5 PRELUDE 11CM FR 6.5 038ACT Used *[id number] 15:36 View Medical MEDICAL WIRE, 3MMJ .035 180CM 180CM Used *[id number] 16:04 View Medical MEDICAL WIRE, EXCHANGE 260CM 3MMJ 260CM Used *[id number] PROBE COVER, STERILE [id number] 15:36 Digiting MEDICAL * Used ULTRASOUND W/ GEL *[id number] 15:36 NAMIC MANIFOLD, 4 PORT * Used *6255210 [id number] 15:36 NAMIC TUBING, HIGH PRESSURE 48" 48" Used *[id number] 15:36 NYCOMED OMNIPAQUE, 350 MG, 150ML 150ML [id number] Used 15:50 NYCOMED OMNIPAQUE, 350 MG, 50ML 50ML [id number] Used 16:36 NYCOMED OMNIPAQUE, 350 MG, 50ML 50ML [id number] Used [id number] 15:36 [facility] BLANKET,WARM AIR CCL * Used *[id number] [id number] 15:36 TERUMEntasso MEDICAL SHEATH, FR5 TERUMO (10CM) FR 5 Used *[id number] Equipment Model, Serial, Lot Number and Expiration Data Description Model Number Serial Number Lot Number Expiration Date STENT, 4.5 X 20MM ALEKSANDREL [id number] 09-11-2019 MONORAIL WIRE, WHOLEY .035 MOD-J 300 [id number] 02-10-2018 CM WIRE, EXCHANGE 260CM 3MMJ [id number] 08-11-2020 History: Current Medications Medication Dosage/Unit Route Frequency Last Date/Time Taken Statins (any) ASA CARDIZEM CLONIDINE History: Allergies Allergy Reaction No Known Allergies History: Risk Factors Family History of Hypertension Dyslipidemia Previous GA Previous Heart Failure Premature CAD Yes Yes No No Yes Prior Valve Prior PCI Prior CABG Surgery No No No Cerebrovascular Peripheral Artery Chronic Lung On Dialysis Diabetes Diabetes Therapy Disease Disease Disease Yes No No Yes Yes Oral History: Risk Factors Selection Items Hyperlipidemia Diabetes Obesity History: Symptoms/Diagnosis Selection Items Angina-unstable History: Stress Tests Stress or Imaging Studies Performed Yes Standard Exercise Stress Test No Stress Echo No Stress Test SPECT Stress Test SPECT Result Stress Test SPECT Ischemia Risk/Extent Yes Positive High Stress Test CMR No Cardiac CTA Coronary Calcium Score No No History: Other Disease Selection Items HTN Renal Failure-Dialysis History: Other Current Smoker Method Quit Packs a Day Years Used Pack Years No Cigarettes 10 Years Ago 10 11 30 Labs Hgb (g/dl) Hct (%) WBC (l/cumm) Platelets (thousands) 11.60-17.00 35.00-51.00 4.00-11.00 150.00-450.00 8.1 24.4 5.2 191 Glucose (mg/dl) BUN (mg/dl) Creatinine (mg/dl) BUN:Creatinine (1:x) 74.00-106.00 7.00-18.00 0.50-1.30 10.00-20.00 148 24 3.0 8 Na (meq/l) K (meq/l) 136.00-145.00 3.50-5.10 142 4.3 INR (PTT:PT) 0.90-1.10 1 Troponin I (ng/ml) Troponin T (ng/ml) CPK (u/l) CPK-MB (ng/ML) 0.02-0.05 0.40-2.10 26.00-308.00 0.50-3.60 6.4 8.29 394 17.8 Medication Medication Total Dose (Bolus/Oral) Medication Total Dosage/Unit 1% XYLOCAINE 20 mL BRILINTA 180 mg FENTANYL 25 mcg HEPARIN 47604 units NTG (IC) 100 mcg VERSED 0.5 mg Medications (Bolus/Oral) Medication Time Given Dosage/Unit Administered By Reason VERSED 10/11/2017 3:56:15 PM 0.5 mg Richie Fortune 0.5 mg VERSED given in lab by Richie Fortune, RN in Right Hand via Peripheral IV. FENTANYL 10/11/2017 3:56:23 PM 25 mcg Richie Fortune 25 mcg FENTANYL given in lab by Richie Fortune, ERNIE in Right Hand via Peripheral IV. 1% XYLOCAINE 10/11/2017 3:57:45 PM 20 mL Richie Fortune 20 mL 1% XYLOCAINE given in lab by Richie Fortune, RN in Right Groin via Subcutaneous. HEPARIN 10/11/2017 4:19:55 PM 8000 units Reyna Ashley 8000 units HEPARIN given in lab by Reyna Ashley BSN in Right Hand via Peripheral IV. HEPARIN 10/11/2017 4:37:52 PM 2000 units Reyna Ashley 2000 units HEPARIN given in lab by Reyna Ashley BSN in Right Hand via Peripheral IV. NTG (IC) 10/11/2017 4:46:59 PM 100 mcg Giulia Gardiner 100 mcg NTG (IC) given in lab by Giulia Gardiner RT(R) via Intra-coronary. BRILINTA 10/11/2017 5:00:17 PM 180 mg Reyna Ashley 180 mg BRILINTA given in lab by Reyna Ashley BSN via Oral. Medication (Drip) Medication Time Given Dosage/Unit Concentration/Unit Diluent (ml) Solutio n IV Solutions 10/11/2017 3:26:44 PM 0 mL (IV) 500 NaCl .9 IV Solutions given in lab by Richie Fortune RN in Right Hand via Peripheral IV. Pump/Drip Flow = 20 ml/hr using NaCl .9. Initial Case Assessment Cardiovascular HR Rhythm NIBP Chest Pain 92 Sinus 143/78 0 Edema Present Skin color Skin None Normal Warm Dry Circulatory - Right Pulses Dorsalis Pedis Femoral 1 1 Scale (0,1,2,3,4,d) Circulatory - Left Pulses Dorsalis Pedis Femoral 2 2 Scale (0,1,2,3,4,d) Neurological State Oriented to time-place- Alert Moves all extremities person Respiration - General Respiration Rate SpO2 (%) O2 (lpm) (B/min) 24 96 0 Final Case Assessment Cardiovascular HR Rhythm NIBP Chest Pain 90 Sinus 143/65 0 Edema Present Skin color Skin None Normal Warm Dry Circulatory - Right Pulses Dorsalis Pedis Femoral 1 1 Scale (0,1,2,3,4,d) Circulatory - Left Pulses Dorsalis Pedis Femoral 2 2 Scale (0,1,2,3,4,d) Neurological State Oriented to time-place- Alert Moves all extremities person Respiration - General Respiration Rate SpO2 (%) O2 (lpm) (B/min) 19 91 2 Chronological Log Time Study Chronological Log 15:26:25 Patient arrived via Bed. 15:26:27 Patient Name, D.O.B, / Armband Verified By R.N. 15:: Consent signed by the physician and the patient and verified by the Cannery Worker staff. 15:: Pre-op and post- op instructions given; patient acknowledges understanding of instructions. 15::29 Verbal Stimulation=2 Physical Stimulation=2 Airway=2 Respiration=2 TOTAL=8. (0=absent, 1=li mited, 2=present) 15::31 Presedation assessment performed by Cannery Worker RN. 15::35 Patient has been NPO for More than 6Hrs. 15::36 Skin Breakdown- none per patient. 15::37 Patient Warmer Placed on the Table. 15::40 Wilber Prominences Protected 15::43 A # 20 IV was noted in the Hand (right). Grade = 0 15::44 IV Solutions given in lab by Richie Fortune, ERNIE in Right Hand via Peripheral IV. Pump/Drip Flow = 20 ml/hr using NaCl .9. 15::45 History and physical on the chart or being dictated. Vitals capture started with the following parameters, Patient=Adult, Interval=5 min, Initial Pr qrbapk=459 mmHg, :34:20 Deflation Rate=5 mmHg, Cuff placed on Left Arm Assessment: Initial Case, HR=92 BPM, Rhythm=Sinus, APYE=635/78 mmhg, Chest Pain=0, Edema=None, Color=Normal, Skin = Warm, Dry Right Pulses: Yogesh Ped=1, Femoral=1 15::28 Left Pulses: Yogesh Ped=2, Femoral=2 Neurological: State=Alert, Ox3, MCDANIEL Respiration: Resp=24 B/min, SpO2=96 %, O2=0 lpm 15::34 Reference ECG taken 15:35:46 HR=95 bpm, LAOO=944/78 mmhg, SpO2=96.0 %, Resp=36 B/min, Pain=0, Katlyn=10, Beavers=2 15:40:00 HR=87 bpm, ILCX=640/73 mmhg, SpO2=97.0 %, Resp=19 B/min, Pain=0, Katlyn=10, Beavers=2 15:41:24 MD arrived. 15:44:57 HR=92 bpm, FEIU=293/77 mmhg, SpO2=95.0 %, Resp=25 B/min, Pain=0, Katlyn=10, Beavers=2 15:46:22 Pressure channel 1 zeroed. 15:50:02 HR=88 bpm, RHSM=181/72 mmhg, SpO2=96.0 %, Resp=21 B/min, Pain=0, Katlyn=10, Beavers=2 15:55:03 HR=87 bpm, NFZA=712/70 mmhg, SpO2=96.0 %, Resp=21 B/min, Pain=0, Katlyn=10, Beavers=2 Time Out. Correct patient, correct procedure, correct physician, power injector loaded, or not loaded with contrast with 15:55:50 surgical team present. Time Out Concurred by MD and individual staff in procedure. 15:55:53 Case Start 15:56:15 0.5 mg VERSED given in lab by Richie Fortune, ERNIE in Right Hand via Peripheral IV. 15:56:23 25 mcg FENTANYL given in lab by Richie Fortune RN in Right Hand via Peripheral IV. 15:57:45 20 mL 1% XYLOCAINE given in lab by Richie Fortune, ERNIE in Right Groin via Subcutaneous. 15:59:40 Access site was Right Femoral Artery. 16:00:02 VP=061 bpm, JEEB=640/71 mmhg, SpO2=93.0 %, Resp=20 B/min, Pain=0, Katlyn=10, Beavers=2 16:00:23 A WIRE, WHOLEY .035 MOD-J 300 CM 300CM was inserted via Fem Art (right). 16:02:53 A SHEATH, FR5 TERUMO (10CM) FR 5 was advanced into the Fem Art (right) using the Percutaneo us technique. A PIG ANG 145 DXTERITY CATHETER FR 5 was advanced over a wire. OMNIPAQUE, 350 MG, 50ML 50ML was used for 16:03:54 injections. 16:04:24 Activated Clotting Time Drawn 16:04:51 HR=84 bpm, URCW=019/68 mmhg, SpO2=95.0 %, Resp=18 B/min, Pain=0, Katlyn=10, Beavers=2 16:06:52 The LV was injected at 10 cc/sec for a total of 30. OMNIPAQUE, 350 MG, 50ML 50ML used. Recorded Pressure: LV, HR=86, Condition=Condition 1 16:07:40 (Left Ventricle) LV 159/14/24 Recorded Pressure: LV, Ao, HR=89, Condition=Condition 1 16:07:50 (Left Ventricle) LV 149/13/22, (Aorta) Ao 148/55/93 16:08:17 Catheter was removed A JL 4.0 INFINITI CATHETER FR 5 was advanced over a wire. OMNIPAQUE, 350 MG, 150ML 150ML was us ed for 16:08:23 injections. 16:10:08 The LCA was injected and visualized at various angles. OMNIPAQUE, 350 MG, 150ML 150ML used . Recorded Pressure: Ao, HR=85, Condition=Condition 1 16:10:18 (Aorta) Ao 136/56/86 16:10:35 HR=90 bpm, JKIE=733/69 mmhg, SpO2=94.0 %, Resp=21 B/min, Pain=0, Katlyn=10, Beavers=2 After removing the current catheter a AR MOD INFINITI CATHETER FR 5 was advanced over a WIRE, E XCHANGE 260CM 16:13:36 3MMJ 260CM. 16:14:59 HR=87 bpm, HHTF=376/73 mmhg, SpO2=93.0 %, Resp=19 B/min, Pain=0, Katlyn=10, Beavers=2 16:15:07 The RCA was injected and visualized at various angles. OMNIPAQUE, 350 MG, 150ML 150ML used . 16:17:38 Catheter was removed A SHEATH, FR6.5 PRELUDE 11CM FR 6.5 was exchanged in the Fem Art (right). This was necessary in order to 16:17:42 accomodate a larger catheter. 16:19:55 8000 units HEPARIN given in lab by Reyna Ashley BSN in Right Hand via Peripheral IV . 16:20:02 HR=92 bpm, AICL=155/69 mmhg, SpO2=92.0 %, Resp=20 B/min, Pain=0, Katlyn=10, Beavers=2 A XB 4.0 GUIDE CATHETER FR 6 was advanced over a wire. OMNIPAQUE, 350 MG, 150ML 150ML was used for 16:21:43 injections. 16:24:40 A WIRE, ATW MARKER 195CM 195CM was inserted via Fem Art (right). 16:25:01 HR=91 bpm, ANUA=818/63 mmhg, SpO2=94.0 %, Resp=24 B/min, Pain=0, Katlyn=10, Beavers=2 16:25:49 Wire removed 16:26:56 A WIRE, BALANCE MIDDLEWEIGHT 190CM 190CM was inserted via Fem Art (right). 16:30:00 HR=92 bpm, VTOV=461/70 mmhg, SpO2=95.0 %, Resp=26 B/min, Pain=0, Katlyn=10, Beavers=2 16:31:04 Interventional wire has crossed the lesion 16:32:39 Activated Clotting Time Drawn A BALLOON, 2.5 X 15MM EUPHORA 15MM was inserted over WIRE, BALANCE MIDDLEWEIGHT 190CM 190CM via the 16:34:26 LAD Mid. 16:35:02 HR=89 bpm, IVYT=966/64 mmhg, SpO2=94.0 %, Resp=23 B/min, Pain=0, Katlyn=10, Beavers=2 16:36:56 ACT (Normal Range 90-180) = 240 A BALLOON, 2.5 X 15MM EUPHORA 15MM over a WIRE, BALANCE MIDDLEWEIGHT 190CM 190CM in the LAD Mid was 16:37:02 inflated using a 30 ASHUTOSH INDEFLATOR at 8 ashutosh for 10 sec. 16:37:52 2000 units HEPARIN given in lab by Reyna Ashley BSN in Right Hand via Peripheral IV . 16:37:59 Balloon Removed. A BALLOON, 2.5 X 15MM EUPHORA 15MM was inserted over WIRE, BALANCE MIDDLEWEIGHT 190CM 190CM via the 16:39:00 LAD Mid. 16:40:03 HR=92 bpm, VHZO=237/68 mmhg, SpO2=93.0 %, Resp=25 B/min, Pain=0, Katlyn=10, Beavers=2 A BALLOON, 2.5 X 15MM EUPHORA 15MM over a WIRE, BALANCE MIDDLEWEIGHT 190CM 190CM in the LAD Mid was 16:40:07 inflated using a 30 ASHUTOSH INDEFLATOR at 17 ashutosh for 50 sec. 16:41:49 Balloon Removed. A BALLOON, 3.0 X 15MM EUPHORA 15MM was inserted over WIRE, BALANCE MIDDLEWEIGHT 190CM 190CM via the 16:42:53 LAD Mid. A BALLOON, 3.0 X 15MM EUPHORA 15MM over a WIRE, BALANCE MIDDLEWEIGHT 190CM 190CM in the LAD Mid was 16:43:47 inflated using a 30 ASHUTOSH INDEFLATOR at 17 ashutosh for 45 sec. A BALLOON, 3.0 X 15MM EUPHORA 15MM over a WIRE, BALANCE MIDDLEWEIGHT 190CM 190CM in the LAD Mid was 16:44:49 inflated using a 30 ASHUTOSH INDEFLATOR at 17 ashutosh for 28 sec. 16:45:02 HR=95 bpm, NCLC=705/71 mmhg, SpO2=92.0 %, Resp=23 B/min, Pain=0, Katlyn=10, Beavers=2 16:45:49 Balloon Removed. 16:46:59 100 mcg NTG (IC) given in lab by Giulia Gardiner RT(R) via Intra-coronary. 16:47:20 The LCA was injected and visualized at various angles. OMNIPAQUE, 350 MG, 50ML 50ML used. An STENT, 4.5 X 20MM REBEL MONORAIL 4.5 X 20MM Bare Metal Stent was inserted through a XB 4.0 G UIDE 16:48:26 CATHETER FR 6 over a WIRE, BALANCE MIDDLEWEIGHT 190CM 190CM. A STENT, 4.5 X 20MM REBEL MONORAIL 4.5 X 20MM was deployed using a 30 ASHUTOSH INDEFLATOR at 11 atmo spheres 16:49:47 for 45 seconds in the LAD Mid. 16:49:59 HR=95 bpm, ATKU=228/65 mmhg, SpO2=89.0 %, Resp=25 B/min, Pain=0, Katlyn=10, Beavers=2 16:51:51 Delivery device removed 16:51:56 Wire removed 16:52:11 The LCA was injected and visualized at various angles. OMNIPAQUE, 350 MG, 150ML 150ML used . 16:54:29 Catheter was removed 16:55:04 HR=93 bpm, ALTP=406/65 mmhg, SpO2=90.0 %, Resp=24 B/min, Pain=0, Katlyn=10, Beavers=2 16:57:13 Case End 16:57:16 In the Fem Art (right) the SHEATH, FR6.5 PRELUDE 11CM FR 6.[address] by Giulia Gardiner RT(R). 16:57:33 No case complications noted. 16:57:35 Cine recording checked. Assessment: Final Case, HR=90 BPM, Rhythm=Sinus, ZMYP=655/65 mmhg, Chest Pain=0, Edema=None, Color=Normal, Skin = Warm, Dry Right Pulses: Yogesh Ped=1, Femoral=1 16:57:37 Left Pulses: Yogesh Ped=2, Femoral=2 Neurological: State=Alert, Ox3, MCDANIEL Respiration: Resp=19 B/min, SpO2=91 %, O2=2 lpm 17:00:00 Sterile dressing applied to site 17:00:11 Implantable Device card placed in patient's chart. 17:00:14 A Left Heart Cath was performed. 17:00:17 180 mg BRILINTA given in lab by Reyna Ashley BSN via Oral. 17:00:50 HR=95 bpm, VQLT=914/62 mmhg, SpO2=91.0 %, Resp=23 B/min, Pain=0, Katlyn=10, Beavers=2 17:01:56 Bedside Report will be given. 17:05:08 HR=93 bpm, YBID=821/65 mmhg, SpO2=90.0 %, Resp=24 B/min, Pain=0, Katlyn=10, Beavers=2 17:09:55 Vitals capture stopped. End Study - Contrast Media Used In Study Contrast Total Opened (mL) Total Used (mL) Total Wasted (mL) Omnipaque 250 230 20 End Study - Maximum Contrast Load Max Contrast Load (mL) 166.1 End Study - Radiation Exposure Fluoro Time (minutes) 13.9 End Study - Patient Disposition Complications Transferred To Interventional Outcome No Telemetry Bed successful
[2017-10-11] MEDS ORDERED: FUROSEMIDE 40 MG/4 ML VIAL IV PUSH ONE (18:15)
--- NOTE | 2017-10-11 18:16 | HHI.PR ---
Subjective Remarks Patient seen today around 1 PM. Says he is feeling all right today. Denies any chest pain or shortness of breath currently. Called at 6 PM by nursing to report the patient complaining of shortness of breath lying down. Discussed with Dr. Bates who is seen the patient. We'll order BiPAP for comfort while lying down. Dialysis to be done shortly. Objective Vital Signs Date Time Temp Pulse Resp B/P (MAP) Pulse Ox O2 Delivery O2 Flow Rate FiO2 10/11/17 14:00 75 10/11/17 12:26 20 10/11/17 12:00 98.2 79 23 131/69 (89) 98 10/11/17 12:00 79 10/11/17 10:00 87 10/11/17 09:25 96 Nasal Cannula 4.00 10/11/17 08:00 73 10/11/17 08:00 98.0 73 29 127/61 (83) 97 10/11/17 06:00 77 10/11/17 04:00 72 10/11/17 04:00 97.0 72 19 128/58 (81) 100 10/11/17 02:00 85 10/11/17 00:00 97.6 77 21 122/62 (82) 91 10/11/17 00:00 77 10/11/17 00:00 77 10/10/17 22:00 83 10/10/17 20:59 96 Nasal Cannula 4.50 10/10/17 20:00 90 10/10/17 20:00 97.3 90 36 140/64 (89) 93 I/O 10/10/17 10/10/17 10/10/17 10/11/17 10/11/17 10/11/17 06:59 14:59 22:59 06:59 14:59 22:59 Intake Total 40 ml 162 ml 30 ml Output Total 2300 ml 2150 ml 60 ml Balance -2260 ml -1988 ml -30 ml Intake Oral 40 ml 120 ml 30 ml IV Total 42 ml Output Urine Total 300 ml 150 ml 60 ml Hemodialysis 2000 ml 2000 ml # Bowel Movements 0 1 0 Result Diagram: 10/11/1723810/11/17238 Objective Remarks GENERAL: Patient sitting up in bed on exam. Breathing comfortably. SKIN: Warm and dry. HEAD: Normocephalic. EYES: No scleral icterus. No injection or drainage. NECK: Supple, trachea midline. No JVD or lymphadenopathy. CARDIOVASCULAR: Regular rate and rhythm without murmurs, gallops, or rubs. RESPIRATORY: Breath sounds equal bilaterally. No accessory muscle use. GASTROINTESTINAL: Abdomen soft, non-tender, nondistended. MUSCULOSKELETAL: No cyanosis. 1 Plus bilateral lower extremity edema. BACK: Nontender without obvious deformity. No CVA tenderness. A/P Assessment and Plan NEURO: //Anxiety Klonopin 0.5 mg by mouth daily as needed RESP: //Acute respiratory failure secondary to volume overload/pulmonary edema. On BiPAP, resolved //COPD on 3 L home O2. Right Of Way Man is Dr. Chang //Asthma //Bronchiectasis //Sleep apnea Bipap for respiratory failure. Transitioned to [place] following HD with 2 kg removal. Continue Singulair 10 mg by mouth daily,chlorpheniramine 4 mg qhs. budesonide 0.5 mg neb bid, Formoterol (administer his own bid) = 10/11. Initial improvement today, however shortness of breath after lying down following cardiac catheter. Discussed with Dr. Bates. Patient placed in reverse Trendelenburg, will order BiPAP for comfort. IV Lasix ordered. Dialysis to be performed. CV: //Hypertension //Hyperlipidemia //Angina Continuous atorvastatin 40 mg by mouth daily, aspirin 81 mg by mouth daily, Cardizem 180 mg, hydralazine 100 mg by mouth 3 times a day Patient has been having GARCIA and exertional angina x 2weeks. Reportedly abnormal stress and Echo. Not currently having CP but states he is amenable to proceeding with cath if it is recommended due to worsening symptoms. Cardiology consult to render opinion and possibly coordinate cath and HD post contrast since he still has residual renal function. Trend cardiac markers and EKG. Intial EKG no acute changes. = Status post cardiac catheter by cardiology. Appreciate assistance. GI: //GERD Protonix 40 mg by mouth daily Heart healthy diet two thousand calorie ADA FEN/RENAL: //ESRD on HD MWF. HD upon admission due to volume overload with removal of 2kg. Plan for additional HD later today. Continue Lasix 40 mg po daily. He still voids. Supervisor Silvering Department is Dr. Luna BPH s/p TURP ID: Afebrile without leukocytosis. Monitor for signs and symptoms of infection. HEME: //Chronic anemia //Iron deficiency Ferrous sulfate 134 mg by mouth daily ENDO: //DM Detemir 12 units subcutaneous daily at bedtime Medium dose sliding scale AC/hs Hold glipizide,onglyza. Discharge Planning Pending cardiology clearance. PT following. Yuri Cade MD Oct 11, 2017 18:16
[2017-10-11] MEDS: CARVEDILOL 3.125 MG TAB PO SCH (21:00)
[2017-10-11] MEDS: INSULIN DETEMIR 100 UNITS/ML VIAL SQ SCH (21:00)
[2017-10-11] MEDS ORDERED: hydrALAZINE HCL 20 MG/ML VIAL ONE (21:33)
[2017-10-11] MEDS: ATORVASTATIN 40 MG TAB PO SCH (22:58)
[2017-10-12] VITALS (13 sets, daily range): BP systolic 103–165; BP diastolic 55–70; PULSE 60–92; RESP 20–40; TEMP 98–99; O2SAT 84–100
--- NOTE | 2017-10-12 01:16 | EKG ---
Date Performed: 10/10/2017 Time Performed: 13:43:39 PTAGE: 82 years EKG: Sinus rhythm WITH FIRST DEGREE AV BLOCK NONSPECIFIC T-WAVE ABNORMALITY ABNORMAL ECG PREVIOUS TRACING : 10/10/2017 08.33 Since the prior tracing, there has been no significant person DOCTOR: Jorge Howell Interpretating Date/Time 10/12/2017 01:14:02
[2017-10-12] MEDS: RESP: ALBUTEROL 2.5 MG/IPRATROPIUM 0.5 MG NEB (SCH) INH ×4 (03:32→20:55)
[2017-10-12] MEDS: CHLORHEXIDINE GLUCONATE 2 % 1 PACK (2 CLOTHS) TOP SCH (04:00)
[2017-10-12] MEDS: cloNIDine HCL 0.1 MG TAB PO SCH ×3 (05:00→17:55)
[2017-10-12 06:08] LABS: AUTOMATED NEUTROPHIL # 4.8 TH/MM3 (1.8-7.7); BASOPHIL % 0.8 % (0.0-2.0); EOSINOPHIL % 0.8 % (0.0-4.0); HEMATOCRIT 25.6 % (39.0-51.0); HEMOGLOBIN 8.6 GM/DL (13.0-17.0); LYMPH % 7.8 % (9.0-44.0); LYMPHOCYTE # 0.5 TH/MM3 (1.0-4.8); MEAN CELL VOLUME 93.5 FL (80.0-100.0); MEAN CORPUSCULAR HEMOGLOBIN 31.5 PG (27.0-34.0); MEAN CORPUSCULAR HGB CONC 33.7 % (32.0-36.0); MEAN PLATELET VOLUME 7.8 FL (7.0-11.0); MONO % 10.4 % (0.0-8.0); MONOCYTE # 0.6 TH/MM3 (0-0.9); NEUT % 80.2 % (16.0-70.0); PLATELET COUNT 215 TH/MM3 (150-450); RED BLOOD COUNT 2.74 MIL/MM3 (4.50-5.90); RED CELL DISTRIBUTION WIDTH 16.3 % (11.6-17.2); WHITE BLOOD COUNT 5.9 TH/MM3 (4.0-11.0)
[2017-10-12] MEDS: TICAGRELOR 90 MG TAB PO SCH ×2 (06:27→17:58)
[2017-10-12 06:42] LABS: BICARBONATE 31.1 MEQ/L (21.0-32.0); CALCIUM 8.5 MG/DL (8.5-10.1); CREATININE 3.1 MG/DL (0.60-1.30)
[2017-10-12 06:43] LABS: CHOLESTEROL/ HDL RATIO 3.1 RATIO; HDL CHOLESTEROL 44.5 MG/DL (40.0-60.0)
[2017-10-12] MEDS: INSULIN ASPART SUPPLEMENTAL SCALE SQ SCH ×4 (08:00→21:00)
[2017-10-12] MEDS: RESP: BUDESONIDE 0.5 MG/2 ML NEB NEB SCH ×2 (08:00→20:55)
[2017-10-12] MEDS ORDERED: IRON SUCROSE INJ 100 MG in SODIUM CHLORIDE 0.9% INJ 100 ML IV SCH (09:00)
[2017-10-12] MEDS: hydrALAZINE HCL 100 MG TAB PO SCH ×3 (09:00→17:55)
[2017-10-12] MEDS: DILTIAZEM-CD 180 MG CAP ER PO SCH (09:12)
[2017-10-12] MEDS: ACETAMINOPHEN 325 MG TAB PO PRN ×2 (09:13→16:40)
[2017-10-12] MEDS: SODIUM CHLORIDE 0.9% FLUSH 10 ML FLUSH IV FLUSH SCH ×2 (09:13→21:03)
[2017-10-12] MEDS: SODIUM BICARBONATE 650 MG TAB PO SCH ×3 (09:30→17:55)
--- NOTE | 2017-10-12 09:50 | EKG ---
Date Performed: 10/12/2017 Time Performed: 06:45:26 PTAGE: 82 years EKG: Sinus rhythm WITH FIRST DEGREE AV BLOCK NONSPECIFIC T-WAVE ABNORMALITY ABNORMAL ECG Since the prior tracing, ther e has been no significant change PREVIOUS TRACING : 10/11/2017 18.57 DOCTOR: Yonatan Phillip Interpretating Date/Time 10/14/2017 07:04:28
--- NOTE | 2017-10-12 11:46 | MA ---
cc: HILDA LERNER DATE 10/11/2017 This procedure is urgent. INDICATION FOR PROCEDURE Fiy-HE-ntcplnbjb myocardial infarction, class IV angina, high-risk nuclear myocardial perfusion study, congestive heart failure class III. PROCEDURE PERFORMED 1. Retrograde left heart catheterization with left ventriculography and selective coronary angiography. 2. Angioplasty and stenting of the mid left anterior descending artery. 3. Moderate sedation. ACCESS SITE Right femoral artery using ultrasound guidance and Glidewire to negotiate severe stenosis of the right common iliac artery. EQUIPMENT USED 5 [place] pigtail catheter, 5 [place] JL 4.0 and AR modified coronary artery catheters. 2.5 and 3.0 compliant balloons. 4.5 x 20 mm REBEL bare metal stent at 11 atmospheres. MEDICATION Versed IV, fentanyl IV, heparin IV, nitroglycerin IC, Brilinta 180 mg p.o. CONTRAST Omnipaque 230 cc. COMPLICATIONS None. ESTIMATED BLOOD LOSS Less than 10 cc. METHOD OF HEMOSTASIS Manual compression. RESULTS HEMODYNAMICS Heart rate 80 beats per minute. Left ventricular end-diastolic pressure 13 mmHg. Left ventricle 140/70. Aorta 140/56/86. LEFT VENTRICULOGRAPHY Ejection fraction 50%. Wall motion normal. No mitral regurgitation. CORONARY ANGIOGRAPHY The left main coronary artery is patent. The left anterior descending artery has 30% stenosis in the proximal portion, 80% sequential stenosis in the midportion which is heavily calcified. D1 is patent. The left circumflex artery has 60% complex stenosis in the midportion. OM1 is a very large vessel which is patent. The right coronary is a dominant vessel with 40% diffuse stenosis in the proximal - midportion. The PDA has 60% proximal stenosis. The PLV is patent. Mid LAD lesion length 15 mm, pre ZACHARY flow III, post ZACHARY flow III, post stenosis 0. This is a type C lesion. Post intervention angiography showed excellent patency of the stented segment and no evidence of dissection, thrombosis or distal embolization. DIAGNOSIS 1. Rri-UV-qnvloawzc myocardial infarction. 2. Coronary artery disease with severe 80% sequential stenosis of a large mid left anterior descending artery with moderate stenosis of the left circumflex artery and right posterior descending artery. 3. Successful angioplasty and stenting of the mid left anterior descending artery using a bare-metal stent. DISPOSITION Mr. Wood will be monitored on telemetry after this procedure. Will continue therapy with Brilinta for at least 3 months and aspirin indefinitely. Will continue aggressive modification of his cardiac risk factors. He should be dialyzed tomorrow as per Dr. Luna. He will follow-up with Dr. Valencia, his primary chairman of the board, in his office after discharge. MD DARIANA Buck/TAZ /5:14 PM /11:07 AM
[2017-10-12] MEDS: PANTOPRAZOLE SOD 40 MG DELAYED RELEASE TAB PO SCH (12:20)
[2017-10-12] MEDS: CHOLECALCIFEROL (VIT D3) 5000 UNIT CAP PO SCH (12:20)
[2017-10-12] MEDS: MONTELUKAST SODIUM 10 MG TAB PO SCH (12:20)
[2017-10-12] MEDS: BETHANECHOL CHL 25 MG TAB PO SCH (12:21)
[2017-10-12] MEDS: FERROUS SULFATE 325 MG (65 MG ELEMENTAL IRON) TAB PO SCH (12:21)
[2017-10-12] MEDS: FUROSEMIDE 40 MG TAB PO SCH (12:21)
[2017-10-12] MEDS: DOCUSATE SODIUM 50 MG/SENNA 8.6 MG TAB PO SCH ×2 (12:21→21:00)
[2017-10-12] MEDS: ASPIRIN 81 MG CHEW TAB PO SCH (12:22)
[2017-10-12] MEDS: CARVEDILOL 3.125 MG TAB PO SCH ×2 (12:22→21:03)
--- NOTE | 2017-10-12 13:07 | HHI.FF ---
Face to Face Verification Diagnosis: (1) Chronic kidney disease, stage 4, severely decreased GFR (2) Elevated troponin (3) CHF exacerbation (4) ESRD (end stage renal disease) Physical Therapy Order: Evaluate and Treat Home Health Nursing Order: CHF education Nursing assessment with vital signs Instructions: Patient will need home health nurse for medication management. 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 My clinical findings support the need for the requested home health care services because: Med compliance is questionable Limited ability to care for self I certify that my clinical findings support that this patient is homebound because: Unsafe to leave home unassisted Yuri Cade MD Oct 12, 2017 13:07
[2017-10-12] MEDS ORDERED: BRIL90TA PO (13:12)
[2017-10-12] MEDS ORDERED: CARV3.125 PO (13:12)
--- NOTE | 2017-10-12 13:19 | HHI.PR ---
Subjective Remarks Patient seen this morning around 10 AM. Says he is breathing great. had dialysis last night, and again this morning. Denies any chest pain. Objective Vital Signs Date Time Temp Pulse Resp B/P (MAP) Pulse Ox O2 Delivery O2 Flow Rate FiO2 10/12/17 08:00 99 Nasal Cannula 5.00 10/12/17 06:00 88 10/12/17 04:00 78 10/12/17 04:00 98.1 78 22 165/67 (99) 95 10/12/17 02:00 92 10/12/17 00:00 84 10/12/17 00:00 98.0 84 25 111/59 (76) 96 Arterial Line 10/11/17 22:21 94 Nasal Cannula 6.00 10/11/17 22:00 89 10/11/17 20:00 98.8 91 24 156/63 (94) 99 10/11/17 20:00 91 10/11/17 19:15 92 31 145/60 (88) 98 10/11/17 18:45 94 28 146/60 (88) 96 10/11/17 18:15 97 55 139/64 (89) 95 10/11/17 18:00 109 10/11/17 18:00 109 51 133/59 (83) 85 10/11/17 17:45 101 33 141/64 (89) 87 10/11/17 17:30 98.7 89 25 134/58 (83) 91 106/47 (66) 10/11/17 14:00 75 I/O 10/11/17 10/11/17 10/11/17 10/12/17 10/12/17 10/12/17 06:59 14:59 22:59 06:59 14:59 22:59 Intake Total 30 ml 60 ml 120 ml Output Total 60 ml 2700 ml 300 ml 1500 ml Balance -30 ml -2640 ml -180 ml -1500 ml Intake Oral 30 ml 60 ml 120 ml Output Urine Total 60 ml 200 ml 300 ml Hemodialysis 2500 ml 1500 ml # Voids 3 # Bowel Movements 0 0 0 Result Diagram: 10/12/1724 10/12/17525 Objective Remarks GENERAL: Patient sitting up in bed on exam. Breathing comfortably. Alert and oriented 3. SKIN: Warm and dry. HEAD: Normocephalic. EYES: No scleral icterus. No injection or drainage. NECK: Supple, trachea midline. No JVD. CARDIOVASCULAR: Regular rate and rhythm without murmurs, gallops, or rubs. RESPIRATORY: Breath sounds equal bilaterally. No accessory muscle use. GASTROINTESTINAL: Abdomen soft, non-tender, nondistended. MUSCULOSKELETAL: No cyanosis. tRace bilateral lower extremity edema. BACK: Nontender without obvious deformity. No CVA tenderness. A/P Assessment and Plan NEURO: //Anxiety Klonopin 0.5 mg by mouth daily as needed RESP: //Acute respiratory failure secondary to volume overload/pulmonary edema. On BiPAP, resolved //COPD on 3 L home O2. [employer] T[employer] Builder is Dr. Chang //Asthma //Bronchiectasis //Sleep apnea Bipap for respiratory failure. Transitioned to [place] following HD with 2 kg removal. Continue Singulair 10 mg by mouth daily,chlorpheniramine 4 mg qhs. budesonide 0.5 mg neb bid, Formoterol (administer his own bid) = 10/11. Initial improvement today, however shortness of breath after lying down following cardiac catheter. Discussed with Dr. Bates. Patient placed in reverse Trendelenburg, will order BiPAP for comfort. IV Lasix ordered. Dialysis to be performed. = Breathing much improved after dialysis. Likely secondary to laying completely flat. Discharge home on fluid restrictions. Home health nurse for medication management, blood pressure monitoring. CV: //Hypertension //Hyperlipidemia //Angina Continuous atorvastatin 40 mg by mouth daily, aspirin 81 mg by mouth daily, Cardizem 180 mg, hydralazine 100 mg by mouth 3 times a day Patient has been having GARCIA and exertional angina x 2weeks. Reportedly abnormal stress and Echo. Not currently having CP but states he is amenable to proceeding with cath if it is recommended due to worsening symptoms. Cardiology consult to render opinion and possibly coordinate cath and HD post contrast since he still has residual renal function. Trend cardiac markers and EKG. Intial EKG no acute changes. = Status post cardiac catheter by cardiology. Appreciate assistance. = As per cardiology, patient will be able to discharge home on Brilinta for 3 months. Follow-up with primary hybrid powertrain development engineer. GI: //GERD Protonix 40 mg by mouth daily Heart healthy diet two thousand calorie ADA FEN/RENAL: //ESRD on HD MWF. HD upon admission due to volume overload with removal of 2kg. Plan for additional HD later today. Continue Lasix 40 mg po daily. He still voids. Healthcare Liaison is Dr. Luna BPH s/p TURP ID: Afebrile without leukocytosis. Monitor for signs and symptoms of infection. HEME: //Chronic anemia //Iron deficiency Ferrous sulfate 134 mg by mouth daily ENDO: //DM Detemir 12 units subcutaneous daily at bedtime Medium dose sliding scale AC/hs Hold glipizide,onglyza. Discharge Planning Discharge home home health pending PT reevaluation. PT will see the patient today. Yuri Cade MD Oct 12, 2017 13:19
--- NOTE | 2017-10-12 13:23 | HHI.DS ---
Discharge Summary Admission Date Oct 09, 2017 at 22:41 Discharge Date: Oct 13, 2017 Admitting Diagnosis CHF/elevated troponins (1) NSTEMI (non-ST elevated myocardial infarction) ICD Code: I21.4 - Non-ST elevation (NSTEMI) myocardial infarction (2) CHF exacerbation ICD Code: I50.9 - Heart failure, unspecified Status: Acute Procedures Cardiac catheterization with stenting. Brief History - From Admission 82 yo male with PMH of ESRD on HD ~3years M/W/F, COPD on 3 L home O2, type II DM, hypertension who presents to [facility] emergency department with shortness of breath and hypoxia. He states he became SOB when he was doing yardwork the morning of 10/09 at around 9:30 am. Symptoms progressively worsened and sats were in the 60s when E VAC arrived and he was placed on BiPAP. His blood pressure was 159/70. He was given sublingual nitroglycerin and Lasix 40 mg IV in the emergency department and was continued on BiPAP. CXR shows vascular congestion. He reports compliance with HD schedule with last treatment on 10/07 reached target removal. He does report increased salt intake over the weekend. Denies cough, fever, hemoptysis. He states that over the last 2 weeks he has experienced midsternal and left sided chest pressure and dyspnea on exertion, lasting about 15 minutes and relieved with rest. Unable to walk 15 feet without developing symptoms. Not having chest pressure now. He was referred to Dr. Valencia with cardiology by his summer law associate and patient states stress test was "abnormal" and that Echo "showed a prior heart attack" and planned for cath 10/25/17. HD was arranged overnight and he had 2 kg removal and was able to come off Bipap. He says he feels improved but not back to baseline. CBC/BMP: 10/12/17 0524 10/12/17 0526 Significant Findings Laboratory Tests Test 10/09/17 20:59 10/09/17 21:05 10/09/17 23:45 10/10/17 03:01 Blood Gas HCO3 21 mmol/L (22-26) Blood Gas Base Excess -5.1 mmol/L (-2-2) Arterial Blood pH 7.23 (7.380-7.420) Arterial Blood Partial Pressure CO2 53 mmHg (38-42) Arterial Blood Partial Pressure O2 154 mmHG (61-120) Blood Gas Hemoglobin 9.0 G/DL (12.0-16.0) Red Blood Count 3.11 MIL/MM3 (4.50-5.90) 2.95 MIL/MM3 (4.50-5.90) Hemoglobin 9.6 GM/DL (13.0-17.0) 9.1 GM/DL (13.0-17.0) Hematocrit 29.9 % (39.0-51.0) 27.6 % (39.0-51.0) Blood Urea Nitrogen 45 MG/DL (7-18) Creatinine 4.54 MG/DL (0.60-1.30) Random Glucose 291 MG/DL (74-106) Calcium Level 8.4 MG/DL (8.5-10.1) Chloride Level 108 MEQ/L (98-107) Estimat Glomerular Filtration Rate 13 ML/MIN (>89) Creatine Kinase MB 4.4 NG/ML (0.5-3.6) Troponin I 0.42 NG/ML (0.02-0.05) 6.43 NG/ML (0.02-0.05) B-Type Natriuretic Peptide 388 PG/ML (0-100) Neutrophils (%) (Auto) 82.6 % (16.0-70.0) Lymphocytes (%) (Auto) 8.0 % (9.0-44.0) Lymphocytes # (Auto) 0.6 TH/MM3 (1.0-4.8) Test 10/10/17 11:20 10/10/17 14:44 10/10/17 20:00 10/10/17 22:33 Blood Urea Nitrogen 34 MG/DL (7-18) Creatinine 3.44 MG/DL (0.60-1.30) Random Glucose 155 MG/DL (74-106) Albumin 3.3 GM/DL (3.4-5.0) Aspartate Amino Transf (AST/SGOT) 45 U/L (15-37) Carbon Dioxide Level 32.6 MEQ/L (21.0-32.0) Estimat Glomerular Filtration Rate 17 ML/MIN (>89) Total Creatine Kinase 323 U/L (39-308) 317 U/L (39-308) 394 U/L (39-308) Creatine Kinase MB 19.9 NG/ML (0.5-3.6) 17.8 NG/ML (0.5-3.6) 11.6 NG/ML (0.5-3.6) Creatine Kinase MB % 6.2 % (0.0-4.0) 5.6 % (0.0-4.0) Troponin I 8.29 NG/ML (0.02-0.05) 7.86 NG/ML (0.02-0.05) 5.80 NG/ML (0.02-0.05) Red Blood Count 2.89 MIL/MM3 (4.50-5.90) Hemoglobin 9.0 GM/DL (13.0-17.0) Hematocrit 27.2 % (39.0-51.0) Activated Partial Thromboplast Time 35.5 SEC (24.3-30.1) Phosphorus Level 2.3 MG/DL (2.5-4.9) Iron Level 48 MCG/DL (65-175) Total Iron Binding Capacity 237 MCG/DL (250-450) Ferritin 1021 NG/ML (26-388) Test 10/11/17 02:39 10/11/17 10:19 10/11/17 13:56 10/11/17 18:25 Red Blood Count 2.60 MIL/MM3 (4.50-5.90) Hemoglobin 8.1 GM/DL (13.0-17.0) Hematocrit 24.1 % (39.0-51.0) Neutrophils (%) (Auto) 76.1 % (16.0-70.0) Monocytes (%) (Auto) 10.6 % (0.0-8.0) Lymphocytes # (Auto) 0.5 TH/MM3 (1.0-4.8) Activated Partial Thromboplast Time 37.3 SEC (24.3-30.1) GREATER THAN 277.5 SEC Blood Urea Nitrogen 24 MG/DL (7-18) Creatinine 3.05 MG/DL (0.60-1.30) Random Glucose 148 MG/DL (74-106) Calcium Level 8.4 MG/DL (8.5-10.1) Aspartate Amino Transf (AST/SGOT) 39 U/L (15-37) Carbon Dioxide Level 33.6 MEQ/L (21.0-32.0) Estimat Glomerular Filtration Rate 20 ML/MIN (>89) Troponin I 5.27 NG/ML (0.02-0.05) HDL Cholesterol 38.0 MG/DL (40.0-60.0) Blood Gas HCO3 28 mmol/L (22-26) Blood Gas Base Excess 3.0 mmol/L (-2-2) Arterial Blood Partial Pressure CO2 49 mmHg (38-42) Arterial Blood Partial Pressure O2 128 mmHg (61-120) Arterial Blood Oxygen Content 11.3 Vol % (12.0-20.0) Blood Gas Hemoglobin 8.2 G/DL (12.0-16.0) Test 10/12/17 05:24 10/12/17 05:26 Red Blood Count 2.74 MIL/MM3 (4.50-5.90) Hemoglobin 8.6 GM/DL (13.0-17.0) Hematocrit 25.6 % (39.0-51.0) Neutrophils (%) (Auto) 80.2 % (16.0-70.0) Lymphocytes (%) (Auto) 7.8 % (9.0-44.0) Monocytes (%) (Auto) 10.4 % (0.0-8.0) Lymphocytes # (Auto) 0.5 TH/MM3 (1.0-4.8) Blood Urea Nitrogen 21 MG/DL (7-18) Creatinine 3.10 MG/DL (0.60-1.30) Random Glucose 126 MG/DL (74-106) Estimat Glomerular Filtration Rate 19 ML/MIN (>89) Total Creatine Kinase 418 U/L (39-308) Creatine Kinase MB 12.3 NG/ML (0.5-3.6) Imaging Last Impressions Chest X-Ray 10/09/172051 Signed Impressions: Service Date/Time: Monday, October 09, 2017 21:35 - CONCLUSION: Mild bibasilar consolidation 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 Riley Decker MD PE at Discharge GENERAL: Patient sitting up on edge of bed. No acute distress. SKIN: Warm and dry. HEAD: Normocephalic. EYES: No scleral icterus. No injection or drainage. NECK: Supple, trachea midline. No JVD. CARDIOVASCULAR: Regular rate and rhythm without murmurs, gallops, or rubs. RESPIRATORY: Breath sounds equal bilaterally. No accessory muscle use. GASTROINTESTINAL: Abdomen soft, non-tender, nondistended. MUSCULOSKELETAL: No cyanosis, or edema. BACK: Nontender without obvious deformity. No CVA tenderness. Pt update on day of discharge Patient seen today 10/13. Discharge held yesterday due to weakness right after dialysis. Patient says he feels much better today, able to walk and take care of himself at home. Denies any chest pain or shortness breath Hospital Course Chest x-ray with bilateral infiltrates on admission. This improved with dialysis. Patient also gives history of unstable angina, with an NSTEMI with troponins up to 8.29 on admission. Urology was consulted, patient underwent cardiac catheterization with stenting. Patient did develop shortness of breath after lying completely flat for cardiac catheterization, however this resolved with dialysis. Patient will need to continue on Brilinta for 3 months. We'll institute fluid restrictions, home health nurse for blood pressure monitoring and medication management. Follow-up with station baggage agent as outpatient. Patient will need repeat chest x-ray in one week to confirm improvement. For problem-based summary from most recent progress note, please see below. NEURO: //Anxiety Klonopin 0.5 mg by mouth daily as needed RESP: //Acute respiratory failure secondary to volume overload/pulmonary edema. On BiPAP, resolved //COPD on 3 L home O2. Pals Specialist is Dr. Chang //Asthma //Bronchiectasis //Sleep apnea Bipap for respiratory failure. Transitioned to [place] following HD with 2 kg removal. Continue Singulair 10 mg by mouth daily,chlorpheniramine 4 mg qhs. budesonide 0.5 mg neb bid, Formoterol (administer his own bid) = 10/11. Initial improvement today, however shortness of breath after lying down following cardiac catheter. Discussed with Dr. Bates. Patient placed in reverse Trendelenburg, will order BiPAP for comfort. IV Lasix ordered. Dialysis to be performed. = Breathing much improved after dialysis. Likely secondary to laying completely flat. Discharge home on fluid restrictions. Home health nurse for medication management, blood pressure monitoring. CV: //Hypertension //Hyperlipidemia //Angina Continuous atorvastatin 40 mg by mouth daily, aspirin 81 mg by mouth daily, Cardizem 180 mg, hydralazine 100 mg by mouth 3 times a day Patient has been having GARCIA and exertional angina x 2weeks. Reportedly abnormal stress and Echo. Not currently having CP but states he is amenable to proceeding with cath if it is recommended due to worsening symptoms. Cardiology consult to render opinion and possibly coordinate cath and HD post contrast since he still has residual renal function. Trend cardiac markers and EKG. Intial EKG no acute changes. = Status post cardiac catheter by cardiology. Appreciate assistance. = As per cardiology, patient will be able to discharge home on Brilinta for 3 months. Follow-up with primary station baggage agent. GI: //GERD Protonix 40 mg by mouth daily Heart healthy diet two thousand calorie ADA FEN/RENAL: //ESRD on HD MWF. HD upon admission due to volume overload with removal of 2kg. Plan for additional HD later today. Continue Lasix 40 mg po daily. He still voids. Criminalist is Dr. Luna BPH s/p TURP ID: Afebrile without leukocytosis. Monitor for signs and symptoms of infection. HEME: //Chronic anemia //Iron deficiency Ferrous sulfate 134 mg by mouth daily ENDO: //DM Detemir 12 units subcutaneous daily at bedtime Medium dose sliding scale AC/hs Hold glipizide,onglyza. Pt Condition on Discharge: Good Discharge Disposition: Disch w/ Home Health Serv Discharge Time: > 30 minutes Discharge Instructions DIET: Follow Instructions for: Diabetic Diet Fluid Restrictions: 1500ML Activities you can perform: Regular-No Restrictions Follow up Referrals: Cardiology - 1 Week with Ray Valencia MD Nephrology - 2 Days PCP Follow-up - 1 Week with Lyn Medrano M.d. New Medications: Carvedilol (Coreg) 3.125 Mg Tab 3.125 MG PO Q12HR for heart for 30 Days, TAB Ticagrelor (Brilinta) 90 Mg Tab 90 MG PO BID@0700,1900 for HEART for 30 Days, TAB Continued Medications: Aspirin (Aspirin) 81 Mg Chew 81 MG CHEW ONCE, #1 TAB 0 Refills Atorvastatin (Atorvastatin) 40 Mg Tab 40 MG PO HS for Cholesterol Management, #30 TAB 0 Refills Benzonatate (Benzonatate) 100 Mg Cap 200 MG PO TID PRN for COUGH, CAP 0 Refills Bethanechol (Bethanechol) 25 Mg Tab 12.5 MG PO DIRECTED for Urinary Symptom Managemen, TAB 0 Refills Budesonide Neb (Pulmicort Respules) 0.5 Mg/2 Ml Neb 0.5 MG NEB DAILY NEB for Breathing Treatment, #30 NEBULE 0 Refills Budesonide Neb (Pulmicort Respules) 0.25 Mg/2 Ml Neb 0.25 MG NEB Q12HR NEB for Breathing Treatment, #60 NEBULE 0 Refills Chlorpheniramine (Allergy) 4 Mg Tab 4 MG PO HS, TAB 0 Refills Cholecalciferol (Vitamin D3) 5,000 Unit Cap 5000 UNITS PO DAILY for Nutritional Supplement, #30 CAP 0 Refills Clonazepam (Clonazepam) 2 Mg Tab 2 MG PO HS, #60 TAB 0 Refills Clonazepam (Klonopin) 0.5 Mg Tab 0.5 MG PO HS, #60 TAB 0 Refills Clonazepam (Klonopin) 0.5 Mg Tab 0.5 MG PO MON,WED,FRI, #60 TAB 0 Refills Clonidine (Clonidine) 0.1 Mg Tab 0.1 MG PO Q6HR for Blood Pressure Management, #60 TAB 0 Refills Diltiazem ER 24 HR (Diltiazem ER 24 HR) 180 Mg Sammy 180 MG PO DAILY, #30 TAB 0 Refills Ferrous Sulfate (Feosol) 325 Mg (65 Mg Iron) Tab 134 MG PO DAILY for Nutritional Supplement, #30 TAB 0 Refills Fish Oil-Cholecalciferol (Putney-3 Fish Oil/Vitamin) 1,000-1,000 Mg Cap 1 CAP PO DAILY for Nutritional Supplement, CAP 0 Refills Formoterol Neb (Perforomist Neb) 20 Mcg/2 Ml Neb 20 MCG NEB BID for COPD, #60 NEBULE 0 Refills Furosemide (Furosemide) 40 Mg Tab 40 MG PO DAILY, #30 TAB 0 Refills Glipizide (Glipizide) 10 Mg Tab 10 MG PO BIDAC for Blood Sugar Management, #60 TAB 0 Refills Take 30 minutes before a meal Glucosamine (Glucosamine) 1,000 Mg Cap 1000 MG PO DAILY for Herbal Supplements, CAP 0 Refills Hydralazine (Hydralazine) 100 Mg Tab 100 MG PO TID for Blood Pressure Management, TAB 0 Refills Take with meals Insulin Detemir Inj (Levemir Inj) 1,000 unit/ 10 ML Vial 12 UNITS SQ HS for Blood Sugar Management, VIAL 0 Refills Do not mix with any other Insulin. Lorazepam (Ativan) 0.5 Mg Tab 0.5 MG PO Q6HR PRN for ANXIETY AND/OR AGITATION, TAB 0 Refills Montelukast (Montelukast) 10 Mg Tab 10 MG PO DAILY, #30 TAB 0 Refills Omeprazole (Omeprazole) 20 Mg Tab 20 MG PO DAILY, #30 TAB 0 Refills Saxagliptin (Onglyza) 5 Mg Tab 2.5 MG PO DAILY for Blood Sugar Management, #30 TAB 0 Refills Sodium Bicarbonate (Sodium Bicarbonate) 650 Mg Tab 650 MG PO TIDPC, #90 TAB 0 Refills Vitamin E Acetate (Vitamin E) 400 Unit Capsule 1 TAB PO DAILY Discontinued Medications: Diltiazem ER 24 HR (Cartia Xt) 120 Mg Caper 180 MG PO DAILY, #30 CAP 0 Refills Prednisone (Prednisone) 10 Mg Tab 10 MG PO DIRECTED, TAB 0 Refills Prednisone (Prednisone) 50 Mg Tab 50 MG PO DAILY for 5 Days, #5 TAB 0 Refills Yuri Cade MD Oct 12, 2017 13:23
--- NOTE | 2017-10-12 16:56 | PD.CARD.PN ---
Subjective Subjective Remarks No CP, still w SOB and orthopnea, dialyzed yest and today Objective Medications Current Medications Medications (Trade) Dose Ordered Sig/Marion Route Start Time Stop Time Status Last Admin Sodium Chloride 1,000 ml @ 0 mls/hr Q0M PRN OTHER 10/09/17 22:32 (Heparin Inj) 8,000 units UNSCH PRN IV FLUSH 10/09/17 22:45 (Heparin Inj) 1,000 units Q1H PRN IV FLUSH 10/09/17 22:45 Sodium Chloride 1,000 ml @ 200 mls/hr Q5H PRN IV 10/09/17 22:32 Sodium Chloride 1,000 ml @ 0 mls/hr Q0M PRN OTHER 10/09/17 22:32 (Mannitol Inj) 12.5 gm UNSCH PRN IV 10/09/17 22:45 Albumin Human 100 ml @ 60 mls/hr UNSCH PRN IV 10/09/17 22:45 (NS Flush) 5 ml UNSCH PRN IV FLUSH 10/09/17 22:45 (Zofran Inj) 4 mg UNSCH PRN IV PUSH 10/09/17 22:45 (Tylenol) 650 mg UNSCH PRN PO 10/09/17 22:45 10/12/17 16:40 (Benadryl) 25 mg UNSCH PRN PO 10/09/17 22:45 (Nitrostat Sl) 0.4 mg UNSCH PRN SL 10/09/17 22:45 (Catapres) 0.1 mg UNSCH PRN PO 10/09/17 22:45 (Gelfoam 12 Mm/7 Mm Top) 1 foam UNSCH PRN TOP 10/09/17 22:45 (NS Flush) 2 ml UNSCH PRN IV FLUSH 10/09/17 23:00 (NS Flush) 2 ml BID IV FLUSH 10/10/17 09:00 10/12/17 09:13 (Tylenol) 650 mg Q6H PRN PO 10/09/17 23:00 10/11/17 23:01 (Protonix) 40 mg DAILY PO 10/10/17 09:00 10/12/17 12:20 (Zofran Inj) 4 mg Q6H PRN IV PUSH 10/09/17 23:00 (Duoneb Neb) 1 ampule Q6HR NEB INH 1/29/18 04:00 10/12/17 03:32 (Albuterol Neb) 2.5 mg Q2HR NEB PRN INH 10/09/17 23:00 Miscellaneous Information 1 Q361D XX 10/09/17 23:00 (Chlorhexidine 2% Cloth) 3 pack Taper DAILY@04 TOP 10/10/17 04:00 10/06/18 03:59 10/12/17 04:00 (Chlorhexidine 2% Cloth) 3 pack UNSCH PRN TOP 10/09/17 23:00 (Karie-Colace) 1 tab BID PO 10/10/17 09:00 10/12/17 12:21 (Milk Of Magnesia Liq) 30 ml Q12H PRN PO 10/09/17 23:00 (Senokot) 17.2 mg Q12H PRN PO 10/09/17 23:00 (Dulcolax Supp) 10 mg DAILY PRN RECTAL 10/09/17 23:00 (Lactulose Liq) 30 ml DAILY PRN PO 10/09/17 23:00 (Levemir Inj) 12 units HS SQ 10/09/17 23:00 10/09/17 23:00 (D50w (Vial) Inj) 50 ml UNSCH PRN IV PUSH 10/09/17 23:00 (Glucagon Inj) 1 mg UNSCH PRN OTHER 10/09/17 23:00 (NovoLOG SUPPLEMENTAL SCALE) 1 ACHS SLIDING SCALE SQ 10/10/17 08:00 10/12/17 16:45 (Tessalon) 200 mg TID PRN PO 10/10/17 09:00 (Urecholine) 12.5 mg DAILY PO 10/10/17 09:00 10/12/17 12:21 (Vitamin D3) 5,000 units DAILY PO 10/10/17 09:00 10/12/17 12:20 (Catapres) 0.1 mg Q6HR PO 10/10/17 12:00 10/12/17 12:22 (Cardizem Cd) 180 mg DAILY PO 10/10/17 09:00 10/12/17 09:12 (Lasix) 40 mg DAILY PO 10/10/17 09:00 10/12/17 12:21 (Apresoline) 100 mg TID PO 10/10/17 09:00 10/12/17 12:20 (Singulair) 10 mg DAILY PO 10/10/17 09:00 10/12/17 12:20 (Sodium Bicarbonate) 650 mg TIDPC PO 10/10/17 09:30 10/12/17 14:46 Patient Own Medication PT OWN MED: CHLORPHENIRAMINE 4MG TABLET... HS PO 10/10/17 21:00 Future Hold Patient Own Medication PT OWN MED: PERFOROM... BID NEB NEB 10/10/17 20:00 Future Hold (Pill Splitter) 1 ea UNSCH PRN OTHER 10/10/17 09:00 (Ferrous Sulfate) 325 mg DAILY PO 10/10/17 11:00 10/12/17 12:21 (KlonoPIN) 0.5 mg DAILY PRN PO 10/10/17 10:15 (Pulmicort Respule Neb) 0.5 mg BID NEB NEB 10/10/17 20:00 10/11/17 22:15 (Epogen Inj) 10,000 units UNSCH PRN IV PUSH 10/10/17 14:00 10/12/17 11:34 Iron Sucrose 100 mg/Sodium Chloride 105 ml @ 105 mls/hr Q24H IV 10/12/17 09:00 10/14/17 09:59 10/12/17 09:00 (Aspirin Chew) 81 mg DAILY PO 10/12/17 09:00 10/12/17 12:22 (Brilinta) 90 mg BID@0700,1900 PO 10/12/17 07:00 10/12/17 06:27 (Lipitor) 80 mg HS PO 10/11/17 21:00 10/11/17 22:58 (Coreg) 3.125 mg Q12HR PO 10/11/17 21:00 10/12/17 12:22 Vital Signs / I&O Vital Signs Date Time Temp Pulse Resp B/P (MAP) Pulse Ox O2 Delivery O2 Flow Rate FiO2 10/12/17 08:00 99 Nasal Cannula 5.00 10/12/17 06:00 88 10/12/17 04:00 78 10/12/17 04:00 98.1 78 22 165/67 (99) 95 10/12/17 02:00 92 10/12/17 00:00 84 10/12/17 00:00 98.0 84 25 111/59 (76) 96 Arterial Line 10/11/17 22:21 94 Nasal Cannula 6.00 10/11/17 22:00 89 10/11/17 20:00 98.8 91 24 156/63 (94) 99 10/11/17 20:00 91 10/11/17 19:15 92 31 145/60 (88) 98 10/11/17 18:45 94 28 146/60 (88) 96 10/11/17 18:15 97 55 139/64 (89) 95 10/11/17 18:00 109 10/11/17 18:00 109 51 133/59 (83) 85 10/11/17 17:45 101 33 141/64 (89) 87 10/11/17 17:30 98.7 89 25 134/58 (83) 91 106/47 (66) I/O 10/11/17 10/11/17 10/11/17 10/12/17 10/12/17 10/12/17 07:00 15:00 23:00 07:00 15:00 23:00 Intake Total 30 ml 60 ml 120 ml Output Total 60 ml 2700 ml 300 ml 1500 ml Balance -30 ml -2640 ml -180 ml -1500 ml Intake Oral 30 ml 60 ml 120 ml Output Urine Total 60 ml 200 ml 300 ml Hemodialysis 2500 ml 1500 ml # Voids 3 # Bowel Movements 0 0 0 Physical Exam GENERAL: In mild resp distress SKIN: Warm and dry. HEAD: Normocephalic. EYES: No scleral icterus. No injection or drainage. NECK: Supple, trachea midline. No JVD or lymphadenopathy. CARDIOVASCULAR: Regular rate and rhythm without murmurs, gallops, or rubs. RESPIRATORY: Breath sounds equal bilaterally. No accessory muscle use. GASTROINTESTINAL: Abdomen soft, non-tender, nondistended. MUSCULOSKELETAL: No cyanosis, mild edema. Groin stable Laboratory Laboratory Tests Test 10/11/17 18:25 10/12/17 05:24 10/12/17 05:26 Blood Gas Puncture Site ART LINE Blood Gas Patient Temperature 98.6 Blood Gas HCO3 28 mmol/L Blood Gas Base Excess 3.0 mmol/L Blood Gas Oxygen Saturation 96 % Arterial Blood pH 7.38 Arterial Blood Partial Pressure CO2 49 mmHg Arterial Blood Partial Pressure O2 128 mmHg Arterial Blood Oxygen Content 11.3 Vol % Arterial Blood Carboxyhemoglobin 1.3 % Arterial Blood Methemoglobin 1.9 % Blood Gas Hemoglobin 8.2 G/DL Oxygen Delivery Device PARTIAL REBREATHER White Blood Count 5.9 TH/MM3 Red Blood Count 2.74 MIL/MM3 Hemoglobin 8.6 GM/DL Hematocrit 25.6 % Mean Corpuscular Volume 93.5 FL Mean Corpuscular Hemoglobin 31.5 PG Mean Corpuscular Hemoglobin Concent 33.7 % Red Cell Distribution Width 16.3 % Platelet Count 215 TH/MM3 Mean Platelet Volume 7.8 FL Neutrophils (%) (Auto) 80.2 % Lymphocytes (%) (Auto) 7.8 % Monocytes (%) (Auto) 10.4 % Eosinophils (%) (Auto) 0.8 % Basophils (%) (Auto) 0.8 % Neutrophils # (Auto) 4.8 TH/MM3 Lymphocytes # (Auto) 0.5 TH/MM3 Monocytes # (Auto) 0.6 TH/MM3 Eosinophils # (Auto) 0.0 TH/MM3 Basophils # (Auto) 0.0 TH/MM3 CBC Comment DIFF FINAL Differential Comment Blood Urea Nitrogen 21 MG/DL Creatinine 3.10 MG/DL Random Glucose 126 MG/DL Calcium Level 8.5 MG/DL Sodium Level 140 MEQ/L Potassium Level 4.1 MEQ/L Chloride Level 100 MEQ/L Carbon Dioxide Level 31.1 MEQ/L Anion Gap 9 MEQ/L Estimat Glomerular Filtration Rate 19 ML/MIN Total Creatine Kinase 418 U/L Creatine Kinase MB 12.3 NG/ML Creatine Kinase MB % 2.9 % Triglycerides Level 120 MG/DL Cholesterol Level 138 MG/DL LDL Cholesterol 70 MG/DL HDL Cholesterol 44.5 MG/DL Cholesterol/HDL Ratio 3.10 RATIO Assessment and Plan Problem List: (1) NSTEMI (non-ST elevated myocardial infarction) ICD Codes: I21.4 - Non-ST elevation (NSTEMI) myocardial infarction (2) CAD (coronary artery disease) ICD Codes: I25.10 - Atherosclerotic heart disease of [place] coronary artery without angina pectoris (3) Stented coronary artery ICD Codes: Z95.5 - Presence of coronary angioplasty implant and graft (4) ESRD (end stage renal disease) ICD Codes: N18.6 - End stage renal disease Status: Chronic (5) Diabetes mellitus ICD Codes: E11.9 - Diabetes mellitus Status: Chronic (6) Hypertension ICD Codes: I10 - Hypertension Status: Chronic (7) Hyperlipidemia ICD Codes: E78.5 - Hyperlipidemia Status: Chronic Assessment and Plan No angina. Still dyspneic and anxious. Groin stable. Good LAD stent result (4.5 mm BMS). Continue dialysis. Continue Brilinta for 3 mo, baby ASA, beta graham and statin. Increase activity. F/u w Dr. Valencia after discharge. Problem Qualifiers (1) Diabetes mellitus: Parvin Meeks MD Oct 12, 2017 16:56
--- NOTE | 2017-10-12 18:23 | HHI.NPPN ---
Subjective History of Present Illness The patient is an 82 yo [place] male who is known to our services for ESRD on HD. Last outpatient HD 10/07. The patient reports that he started to become SOB over the past 2 days and became increasingly concerned yesterday as he was severely short of breath and they decided to come to the ED for evaluation. He has a hx of pulmonary disease requiring constant O2 via NC. Reports he had a recent visit with Dr. Valencia, cardiology, and mentions that they had planned for cardiac work up to rule out cardiovascular reason for increasing shortness of breath. His typical dialysis treatment time is 3h & 45mins MWF, but he has a difficult time with allowing ultrafiltration as he says he cramps quite a bit with any fluid removal more than 2L. He was recently started on Marinol given anorexia and weight loss---says he has responded quite well to this. Interval History Patient sitting up comfortably in bed. No verbal complaints currently. Objective Data Data 10/12/17 10/13/17 19:00 07:00 Output Total 1500 ml Balance -1500 ml Hemodialysis 1500 ml Vital Signs Date Time Temp Pulse Resp B/P (MAP) Pulse Ox O2 Delivery O2 Flow Rate FiO2 10/12/17 08:00 99 Nasal Cannula 5.00 10/12/17 06:00 88 10/12/17 04:00 78 10/12/17 04:00 98.1 78 22 165/67 (99) 95 10/12/17 02:00 92 10/12/17 00:00 84 10/12/17 00:00 98.0 84 25 111/59 (76) 96 Arterial Line 10/11/17 22:21 94 Nasal Cannula 6.00 10/11/17 22:00 89 10/11/17 20:00 98.8 91 24 156/63 (94) 99 10/11/17 20:00 91 10/11/17 19:15 92 31 145/60 (88) 98 10/11/17 18:45 94 28 146/60 (88) 96 -: 10/12/17 0524 10/12/17 0526 Physical Exam Eyes Eye Exam: Sclera White Pulmonary Resp Exam: Clear Bilaterally, Breath Sounds Equal Cardiology CV Exam: Regular, Normal Sinus Rhythm, Good Perfusion Gastrointestinal/Abdomen GI Exam: Soft, Non-Tender Integumentary Skin Exam: Clear, Warm, Normal Turgor Extremeties Extremities Exam: No Edema, Pitting Edema Psychiatric Psych Exam: Appropriate Responses Assessment/Plan Discussed Condition With: Patient, Spouse Problem List: (1) ESRD (end stage renal disease) ICD Codes: N18.6 - End stage renal disease Status: Chronic Plan: Patient now status post cardiac catheterization with stenting of his LAD. Clinical status much improved. No evidence of fluid retention at this point in time. Scheduled dialysis will be his regular day i.e. Tuesday. This could be done as an outpatient if patient stable for discharge tomorrow. Medications should be adjusted for the patient's ESRD. Avoid gadolinium. (2) COPD exacerbation ICD Codes: J44.1 - COPD exacerbation Status: Chronic Plan: Sees Dr. Benton as outpatient. Continue on nebulizers as scheduled (3) CHF exacerbation ICD Codes: I50.9 - Heart failure, unspecified Status: Acute Plan: Improve clinically and most likely precipitated by ischemic event. (4) Hypertension ICD Codes: I10 - Hypertension Status: Chronic (5) Anemia ICD Codes: D64.9 - Anemia Status: Acute Plan: Venofer as ordered. Continue Epogen. Los Luna MD Oct 12, 2017 18:23
[2017-10-12] MEDS: INSULIN DETEMIR 100 UNITS/ML VIAL SQ SCH (21:00)
[2017-10-12] MEDS: ATORVASTATIN 40 MG TAB PO SCH (21:03)
[2017-10-13] VITALS (7 sets, daily range): BP systolic 102–123; BP diastolic 54–59; PULSE 61–71; RESP 19–40; TEMP 97.4–98.9; O2SAT 96–99
[2017-10-13] MEDS: CHLORHEXIDINE GLUCONATE 2 % 1 PACK (2 CLOTHS) TOP SCH (00:25)
[2017-10-13] MEDS: RESP: ALBUTEROL 2.5 MG/IPRATROPIUM 0.5 MG NEB (SCH) INH ×2 (02:57→08:42)
[2017-10-13] MEDS: cloNIDine HCL 0.1 MG TAB PO SCH ×2 (05:20)
[2017-10-13] MEDS: TICAGRELOR 90 MG TAB PO SCH (05:20)
[2017-10-13 06:11] LABS: HEMATOCRIT 25.4 % (39.0-51.0); HEMOGLOBIN 8.5 GM/DL (13.0-17.0); MEAN CELL VOLUME 93.4 FL (80.0-100.0); MEAN CORPUSCULAR HEMOGLOBIN 31.3 PG (27.0-34.0); MEAN CORPUSCULAR HGB CONC 33.5 % (32.0-36.0); MEAN PLATELET VOLUME 7.2 FL (7.0-11.0); PLATELET COUNT 232 TH/MM3 (150-450); RED BLOOD COUNT 2.72 MIL/MM3 (4.50-5.90); RED CELL DISTRIBUTION WIDTH 16.7 % (11.6-17.2); WHITE BLOOD COUNT 6.1 TH/MM3 (4.0-11.0)
[2017-10-13] MEDS: INSULIN ASPART SUPPLEMENTAL SCALE SQ SCH (08:00)
[2017-10-13] MEDS: DILTIAZEM-CD 180 MG CAP ER PO SCH (08:18)
[2017-10-13] MEDS: FUROSEMIDE 40 MG TAB PO SCH (08:19)
[2017-10-13] MEDS: CARVEDILOL 3.125 MG TAB PO SCH (08:19)
[2017-10-13] MEDS: DOCUSATE SODIUM 50 MG/SENNA 8.6 MG TAB PO SCH (08:20)
[2017-10-13] MEDS: BETHANECHOL CHL 25 MG TAB PO SCH (08:20)
[2017-10-13] MEDS: MONTELUKAST SODIUM 10 MG TAB PO SCH (08:20)
[2017-10-13] MEDS: CHOLECALCIFEROL (VIT D3) 5000 UNIT CAP PO SCH (08:20)
[2017-10-13] MEDS: ASPIRIN 81 MG CHEW TAB PO SCH (08:20)
[2017-10-13] MEDS: PANTOPRAZOLE SOD 40 MG DELAYED RELEASE TAB PO SCH (08:20)
[2017-10-13] MEDS: FERROUS SULFATE 325 MG (65 MG ELEMENTAL IRON) TAB PO SCH (08:20)
[2017-10-13] MEDS: SODIUM BICARBONATE 650 MG TAB PO SCH (08:20)
[2017-10-13] MEDS: hydrALAZINE HCL 100 MG TAB PO SCH (08:20)
[2017-10-13] MEDS: SODIUM CHLORIDE 0.9% FLUSH 10 ML FLUSH IV FLUSH SCH (08:23)
[2017-10-13] MEDS: RESP: BUDESONIDE 0.5 MG/2 ML NEB NEB SCH (08:42)
--- NOTE | 2017-10-14 07:05 | EKG ---
Date Performed: 10/11/2017 Time Performed: 18:57:12 PTAGE: 82 years EKG: Sinus rhythm WITH FIRST DEGREE AV BLOCK NONSPECIFIC ST & T-WAVE ABNORMALITY ABNORMAL ECG Since the prior tracing, there has been no significant change PREVIOUS TRACING : 10/10/2017 13.43 DOCTOR: Yonatan Phillip Interpretating Date/Time 10/14/2017 07:04:37
== END 2017-10-13 11:10 | disposition home health service (06) | DRG 248 ==
LOC: NEPE 20:44 → NEDA 22:41 → HIMW 23:30
PROVIDERS: ADMIT Internal Medicine; ATTEND Internal Medicine
PROC: 5A09357 Assistance with Respiratory Ventilation, Less than 24 Consecutive Hours, Continuous Positive Airway Pressure (ICD-10-PCS; 2017-10-09)
PROC: 5A1D70Z Performance of Urinary Filtration, Intermittent, Less than 6 Hours Per Day (ICD-10-PCS; 2017-10-09)
PROC: 4A023N7 Measurement of Cardiac Sampling and Pressure, Left Heart, Percutaneous Approach (ICD-10-PCS; 2017-10-11)
PROC: B2111ZZ Fluoroscopy of Multiple Coronary Arteries using Low Osmolar Contrast (ICD-10-PCS; 2017-10-11)
PROC: B2151ZZ Fluoroscopy of Left Heart using Low Osmolar Contrast (ICD-10-PCS; 2017-10-11)
PROC: 02703DZ Dilation of Coronary Artery, One Artery with Intraluminal Device, Percutaneous Approach (ICD-10-PCS; principal; 2017-10-11 14:45)
DX: I21.4 Non-ST elevation (NSTEMI) myocardial infarction (principal); J96.21 Acute and chronic respiratory failure with hypoxia; I13.2 Hypertensive heart and chronic kidney disease with heart failure and with stage 5 chronic kidney disease, or end stage renal disease; N17.9 Acute kidney failure, unspecified; N18.6 End stage renal disease; J44.1 Chronic obstructive pulmonary disease with (acute) exacerbation; Z99.81 Dependence on supplemental oxygen; E11.22 Type 2 diabetes mellitus with diabetic chronic kidney disease; E66.9 Obesity, unspecified; G47.30 Sleep apnea, unspecified; K21.9 Gastro-esophageal reflux disease without esophagitis; N40.0 Benign prostatic hyperplasia without lower urinary tract symptoms; D50.9 Iron deficiency anemia, unspecified; E78.5 Hyperlipidemia, unspecified; I16.0 Hypertensive urgency; M19.90 Unspecified osteoarthritis, unspecified site; I50.9 Heart failure, unspecified; I25.119 Atherosclerotic heart disease of native coronary artery with unspecified angina pectoris; F40.240 Claustrophobia; F41.9 Anxiety disorder, unspecified; R63.4 Abnormal weight loss; R63.0 Anorexia; I25.2 Old myocardial infarction; Z79.899 Other long term (current) drug therapy; Z99.2 Dependence on renal dialysis; Z68.32 Body mass index [BMI] 32.0-32.9, adult; Z79.82 Long term (current) use of aspirin; Z98.1 Arthrodesis status; Z87.891 Personal history of nicotine dependence
CPT/HCPCS: 36600; 51702; 71045; 80048; 80053; 80061; 80074; 82306; 82550; 82552; 82728; 82805; 82948; 83540; 83550; 83735; 83880; 84100; 84443; 84484; 85002; 85025; 85027; 85610; 85730; 87040; 87641; 87804; 90935; 92928; 93005; 93458; 94002; 94003; 94150; 94640; 94664; 96374; 96375; 99152; 99153; C1725; C1769; C1876; C1887; C1893; J0360; J1644; J1756; J1815; J1940; J2250; J3010; J7626; Q4081; Q9967

== ENCOUNTER 2017-11-04 13:13 | Emergency (ER) | payer MEDICARE, BC ==
[~2017-11-04] VITALS: Ht 175.3 cm; Wt 91.8 kg
[~2017-11-04 13:13] MED LIST changes: +BRIL90TA PO; -CART120C PO; +CARV3.125 PO; -PRED10 PO; -PRED50 PO
[2017-11-04 13:15] VITALS: BP 179/69; PULSE 69; RESP 18; TEMP 98.5; O2SAT 100
[2017-11-04 14:20] LABS: AUTOMATED NEUTROPHIL # 3.5 TH/MM3 (1.8-7.7); BASOPHIL # 0.1 TH/MM3 (0-0.2); BASOPHIL % 1.9 % (0.0-2.0); EOSINOPHIL # 0.3 TH/MM3 (0-0.4); EOSINOPHIL % 6.6 % (0.0-4.0); HEMATOCRIT 23.2 % (39.0-51.0); HEMOGLOBIN 7.7 GM/DL (13.0-17.0); LYMPHOCYTE # 0.6 TH/MM3 (1.0-4.8); MEAN CELL VOLUME 92.8 FL (80.0-100.0); MEAN CORPUSCULAR HEMOGLOBIN 30.9 PG (27.0-34.0); MEAN CORPUSCULAR HGB CONC 33.3 % (32.0-36.0); MONO % 8.2 % (0.0-8.0); MONOCYTE # 0.4 TH/MM3 (0-0.9); NEUT % 71.3 % (16.0-70.0); PLATELET COUNT 213 TH/MM3 (150-450); RED CELL DISTRIBUTION WIDTH 17.1 % (11.6-17.2); WHITE BLOOD COUNT 4.9 TH/MM3 (4.0-11.0)
[2017-11-04 14:26] VITALS: PULSE 80; RESP 18; O2SAT 98
[2017-11-04 14:27] LABS: PROTHROMBIN TIME - PATIENT 10.3 SEC (9.8-11.6)
[2017-11-04 14:30] VITALS: BP 139/61; PULSE 71; RESP 18; O2SAT 99
[2017-11-04 14:41] LABS: ALBUMIN 3.6 GM/DL (3.4-5.0); ALT (GPT) 12 U/L (12-78); AST (GOT) 16 U/L (15-37); BICARBONATE 30.7 MEQ/L (21.0-32.0); BLOOD UREA NITROGEN 9 MG/DL (7-18); CALCIUM 8.5 MG/DL (8.5-10.1); CHLORIDE 101 MEQ/L (98-107); CREATININE 1.74 MG/DL (0.60-1.30); GLOMERULAR FILTRATION RATE 38 ML/MIN (>89); GLUCOSE,RANDOM 83 MG/DL (74-106); SODIUM (NA) 137 MEQ/L (136-145)
[2017-11-04 14:43] LABS: ALKALINE PHOSPHATASE 86 U/L (45-117); TOTAL BILIRUBIN ADULT 0.7 MG/DL (0.2-1.0); TOTAL PROTEIN 7.3 GM/DL (6.4-8.2)
[2017-11-04] MEDS ORDERED: SODIUM CHLOR 0.9% 250 ML INJ 250 ML IV ONE (15:15)
[2017-11-04 16:20] VITALS: BP 146/66; PULSE 67; RESP 18; TEMP 97.9; O2SAT 100
--- NOTE | 2017-11-04 17:19 | PD ---
HPI Chief Complaint: Abnormal Results Time Seen by Provider: 14:52 Travel History International Travel<30 days: No Contact w/Intl Traveler<30days: No Traveled to known affect area: No History of Present Illness HPI 82-year-old male with history of renal failure, COPD, coronary artery disease, presents at the request of Dr. Cabrera Luna for a transfusion of 1 unit of blood. Patient had heme positive stools and was noted to be anemic. He had a hemoglobin less than 7. He was sent here with a prescription for transfusion of 1 unit of packed red blood cells. Patient does also have a history of CHF. He is currently on home O2 of 3 L/min. There is no chest pain, chest pressure. No nausea vomiting. No diarrhea. No other complaints at time of my examination. PFSH Past Medical History Hx Anticoagulant Therapy: Yes Anemia: Yes Arthritis: Yes Asthma: Yes Autoimmune Disease: No Blood Disorders: No Anxiety: No Depression: No Heart Rhythm Problems: No Cancer: No Cardiovascular Problems: Yes High Cholesterol: No Chemotherapy: No Chest Pain: No Congestive Heart Failure: No COPD: Yes Cerebrovascular Accident: No Diabetes: Yes (TYPE II) Patient Takes Glucophage: No Diminished Hearing: No Endocrine: Yes Gastrointestinal Disorders: Yes (ACID REFLUX) GERD: Yes Glaucoma: No Genitourinary: Yes (ENLARGED PROSTATE) Headaches: No Hepatitis: No Hiatal Hernia: No Hypertension: No Immune Disorder: No Implanted Vascular Access Dvce: No Kidney Stones: No Medical other: Yes (ANEMIA OF UNKNOWN ORIGIN) Musculoskeletal: Yes (HX OF NECK FUSION 2004, ARTHRITIS) Neurologic: No Psychiatric: Yes (CLAUSTROPHOBIC) Reproductive: Yes (ENLARGED PROSTATE) Respiratory: Yes Immunizations Current: Yes Migraines: No Myocardial Infarction: No Radiation Therapy: No Renal Failure: Yes Seizures: No Sleep Apnea: Yes Thyroid Disease: No Ulcer: No Past Surgical History Abdominal Surgery: Yes (UMBIICAL HERNIA, APPENDECTOMY) AICD: No Appendectomy: Yes Arteriovenous Shunt: No Body Medical Devices: CERVICAL FUSION Cardiac Surgery: No Ear Surgery: No Endocrine Surgery: No Eye Surgery: Yes (BILATERAL CATARACT SURGERY 2012) Genitourinary Surgery: Yes (TURP 2009) Gynecologic Surgery: No Insulin Pump: No Joint Replacement: No Neurologic Surgery: No Oral Surgery: No Pacemaker: No Thoracic Surgery: No Other Surgery: Yes Social History Alcohol Use: No Tobacco Use: No Substance Use: No Allergies-Medications (Allergen,Severity, Reaction): Coded Allergies: No Known Allergies (Verified Allergy, Unknown, 11/04/17) Reported Meds & Prescriptions Reported Meds & Active Scripts Active Brilinta (Ticagrelor) 90 Mg Tab 90 Mg PO BID@0700,1900 30 Days Coreg (Carvedilol) 3.125 Mg Tab 3.125 Mg PO Q12HR 30 Days Reported Perforomist Neb (Formoterol Fumarate) 20 Mcg/2 Ml Neb 20 Mcg NEB BID Pulmicort Respules (Budesonide) 0.25 Mg/2 Ml Neb 0.25 Mg NEB Q12HR NEB Levemir Inj (Insulin Detemir) 1,000 unit/ 10 ML Vial 12 Units SQ HS Do not mix with any other Insulin. Bethanechol 25 Mg Tab 12.5 Mg PO DIRECTED Vitamin D3 (Cholecalciferol) 5,000 Unit Cap 5,000 Units PO DAILY Vitamin E (Vitamin E Acetate) 400 Unit Capsule 1 Tab PO DAILY Onglyza (Saxagliptin) 5 Mg Tab 2.5 Mg PO DAILY Montelukast (Montelukast Sodium) 10 Mg Tab 10 Mg PO DAILY Klonopin (Clonazepam) 0.5 Mg Tab 0.5 Mg PO HS Hydralazine (Hydralazine HCl) 100 Mg Tab 100 Mg PO TID Take with meals Glipizide 10 Mg Tab 10 Mg PO BIDAC Take 30 minutes before a meal Furosemide 40 Mg Tab 40 Mg PO DAILY [place]-3 Fish Oil/Vitamin (Fish Oil-Cholecalciferol) 1,000-1,000 Mg Cap 1 Cap PO DAILY Clonazepam 2 Mg Tab 2 Mg PO HS Allergy (Chlorpheniramine Maleate) 4 Mg Tab 4 Mg PO HS Pulmicort Respules (Budesonide) 0.5 Mg/2 Ml Neb 0.5 Mg NEB DAILY NEB Benzonatate 100 Mg Cap 200 Mg PO TID PRN Atorvastatin (Atorvastatin Calcium) 40 Mg Tab 40 Mg PO HS Ativan (Lorazepam) 0.5 Mg Tab 0.5 Mg PO Q6HR PRN Aspirin 81 Mg Chew 81 Mg CHEW ONCE Review of Systems General / Constitutional: No: Fever, Chills HENT: No: Headaches, Lightheadedness Cardiovascular: No: Chest Pain or Discomfort, Palpitations Respiratory: Positive: Shortness of Breath, No: Cough (Panic) Gastrointestinal: Positive: Other, No: Nausea, Vomiting, Diarrhea, Abdominal Pain Genitourinary: No: Frequency (Heme positive stools), Dysuria, Incontinence Musculoskeletal: No: Weakness, Pain Neurologic: No: Weakness, Headache, Change in Mentation Physical Exam Narrative GENERAL: Well-nourished, well-developed patient, in mild respiratory discomfort. SKIN: Focused skin assessment warm/dry. HEAD: Normocephalic/atraumatic. EYES: No scleral icterus. No injection or drainage. NECK: Supple, trachea midline. CARDIOVASCULAR: Regular rate and rhythm without murmurs, gallops, or rubs. RESPIRATORY: Breath sounds equal bilaterally. No accessory muscle use. GASTROINTESTINAL: Abdomen soft, non-tender, nondistended. MUSCULOSKELETAL: No cyanosis, or edema. NEUROLOGICAL: Awake and alert. Cranial nerves II through XII intact. Motor grossly within normal limits. Five out of 5 muscle strength in all muscle groups. Normal speech. Data Data Last Documented VS Vital Signs Date Time Temp Pulse Resp B/P (MAP) Pulse Ox O2 Delivery O2 Flow Rate FiO2 11/04/17 16:20 97.9 67 18 146/66 100 11/04/17 14:30 Nasal Cannula 3.00 Orders Orders Complete Blood Count With Diff (11/04/17 13:36) Comprehensive Metabolic Panel (11/04/17 13:36) Prothrombin Time / Inr (Pt) (11/04/17 13:36) Act Partial Throm Time (Ptt) (11/04/17 13:36) Ecg Monitoring (11/04/17 13:36) Oximetry (11/04/17 13:36) Oxygen Administration (11/04/17 13:36) Iv Access Insert/Monitor (11/04/17 13:36) Type And Screen (11/04/17 13:36) Red Blood Cells (Rbc) (11/04/17 15:11) Sodium Chlor 0.9% 250 Ml Inj (Ns 250 Ml (11/04/17 15:15) Labs Laboratory Tests Test 11/04/17 14:01 White Blood Count 4.9 TH/MM3 Red Blood Count 2.50 MIL/MM3 Hemoglobin 7.7 GM/DL Hematocrit 23.2 % Mean Corpuscular Volume 92.8 FL Mean Corpuscular Hemoglobin 30.9 PG Mean Corpuscular Hemoglobin Concent 33.3 % Red Cell Distribution Width 17.1 % Platelet Count 213 TH/MM3 Mean Platelet Volume 7.0 FL Neutrophils (%) (Auto) 71.3 % Lymphocytes (%) (Auto) 12.0 % Monocytes (%) (Auto) 8.2 % Eosinophils (%) (Auto) 6.6 % Basophils (%) (Auto) 1.9 % Neutrophils # (Auto) 3.5 TH/MM3 Lymphocytes # (Auto) 0.6 TH/MM3 Monocytes # (Auto) 0.4 TH/MM3 Eosinophils # (Auto) 0.3 TH/MM3 Basophils # (Auto) 0.1 TH/MM3 CBC Comment DIFF FINAL Differential Comment Prothrombin Time 10.3 SEC Prothromb Time International Ratio 1.0 RATIO Activated Partial Thromboplast Time 26.6 SEC Blood Urea Nitrogen 9 MG/DL Creatinine 1.74 MG/DL Random Glucose 83 MG/DL Total Protein 7.3 GM/DL Albumin 3.6 GM/DL Calcium Level 8.5 MG/DL Alkaline Phosphatase 86 U/L Aspartate Amino Transf (AST/SGOT) 16 U/L Alanine Aminotransferase (ALT/SGPT) 12 U/L Total Bilirubin 0.7 MG/DL Sodium Level 137 MEQ/L Potassium Level 3.9 MEQ/L Chloride Level 101 MEQ/L Carbon Dioxide Level 30.7 MEQ/L Anion Gap 5 MEQ/L Estimat Glomerular Filtration Rate 38 ML/MIN MDM Medical Decision Making Medical Screen Exam Complete: Yes Emergency Medical Condition: Yes Differential Diagnosis Anemia versus COPD exacerbation versus CHF exacerbation Narrative Course 82-year-old male history of renal failure, dialysis dependent, presents with a prescription for transfusion of 1 unit of packed red blood cells. Patient has had trace heme positive stools. He was noted to have a hemoglobin less than 7. His movie operator, Dr. Luna, sent him here for a unit of blood. The patient has been transfused 1 unit of packed red blood cells. He will be discharged back home. He is instructed to follow-up for dialysis as scheduled. He is instructed to return if he develops worsening shortness of breath, dizziness, chest pain, or any other reason. Diagnosis Primary Impression: Anemia Additional Impressions: ESRD (end stage renal disease) Diabetes mellitus Hypertension Hyperlipidemia Additional Instructions: Return if feeling worse, shortness of breath, chest pain, or any other reason that concerns you. Follow-up with your dialysis center for your next scheduled dialysis. Disposition: 01 DISCHARGE HOME Condition: Stable Cabrera Stevens MD Nov 04, 2017 17:19
[2017-11-04 18:03] VITALS: BP 150/66; PULSE 67; RESP 18; TEMP 98; O2SAT 98
== END 2017-11-04 18:11 | disposition home or self-care (01) ==
LOC: NEPE 13:13
DX: E11.22 Type 2 diabetes mellitus with diabetic chronic kidney disease (principal); I13.2 Hypertensive heart and chronic kidney disease with heart failure and with stage 5 chronic kidney disease, or end stage renal disease; I50.9 Heart failure, unspecified; N18.6 End stage renal disease; E78.5 Hyperlipidemia, unspecified; D63.1 Anemia in chronic kidney disease; Z99.2 Dependence on renal dialysis; J44.9 Chronic obstructive pulmonary disease, unspecified; K21.9 Gastro-esophageal reflux disease without esophagitis
CPT/HCPCS: 36430; 80053; 85025; 85610; 85730; 86850; 86900; 86901; 86920; 99285; P9016